=== PATIENT | male | born 1965 | race African-American/Black ===

== ENCOUNTER 2019-03-12 17:57 | Inpatient (IN) | payer OTHER ==
[2019-03-12] MEDS ORDERED: SODIUM CHLORIDE 2,654 ML IV ONE (19:51)
[2019-03-12] MEDS ORDERED: ACETAMINOPHEN 1000 MG/100 ML VIAL (NON FORMULARY) IVPB ONE (20:05)
[2019-03-12] MEDS ORDERED: KETOROLAC TROMETHAMINE 30 MG/1 ML VIAL IVPUSH ONE (20:05)
[2019-03-12] MEDS ORDERED: SODIUM CHLORIDE 0.9% 500 ML INFUS.BAG IV ONE (20:05)
[2019-03-12] MEDS ORDERED: KETOROLAC TROMETHAMINE 30 MG/1 ML VIAL ONE (20:16)
[2019-03-12] MEDS ORDERED: ACETAMINOPHEN INJECTION 100 ML IVPB ONE (20:16)
--- NOTE | 2019-03-12 20:33 | PDOC ---
History of Present Illness - General Chief Complaint: Wound Stated Complaint: FOOT ULCER Time Seen by Provider: 03/12/19 19:41 - History of Present Illness Initial Comments: Alan Londono is a 54yo man with a PMH of asthma, epilepsy, chronic LLE wound, polysubstance abuse(heroin, cocaine, alcohol) who presents from detox intake with a LLE foot wound. He states that he has had the wound for years, and he follows with wound care at [facility]. He has not seen his wound care doctor for several weeks, which was the last time the wound has been bandaged or addressed. He says that it always hurts, always smells bad, and always feels warm. He additionally reports that the foot is always very swollen. However, he says that the pain is much worse than normal; he generally is able to bear weight, and he has been unable to walk without significant pain for several days. Past History - Past Medical History Allergies/Adverse Reactions: Allergies Allergy/AdvReac Type Severity Reaction Status Date / Time No Known Allergies Allergy Verified 03/12/19 16:22 Home Medications: Ambulatory Orders Albuterol Sulfate 0.042% 1 inhaler PO Q4HWA PRN 03/12/19 Silver/Calcium Alginate [Algicell Ag 3/4"X12" Dressing] 1 patch 03/12/19 levETIRAcetam [Keppra -] 500 mg PO BID 03/12/19 COPD: No Diabetes: Yes Seizures: Yes Other medical history: substance abuse - Immunization History Immunization Up to Date: No - Psycho Social/Smoking Cessation Hx Smoking History: Current every day smoker Have you smoked in the past 12 months: Yes Number of Cigarettes Smoked Daily: 20 Information on smoking cessation initiated: No Hx Alcohol Use: No Drug/Substance Use Hx: No Review of Systems - Review of Systems Comments:: General: No fevers, no chills, no weight or appetite change, no malaise HEENT: No changes in vision, no changes in hearing, no congestion, no sore throat CV: No chest pain, no palpitations, no LE edema Pulm: No SOB, no cough, no wheezing GI: No nausea or vomiting, no change in bowel habits, no melena : No frequency, no urgency, no dysuria Musc: No back pain, no joint swelling, no recent injury. +chronic LLE wound Skin: See HPI Endo: No excessive thirst, no heat/cold intolerance Heme: No unusual bruising or bleeding, no swollen glands Neuro: No syncope, no numbness/tingling, no focal weakness Vasc: No claudication Psych: No recent change in mood, no SI or HI *Physical Exam - Vital Signs Last Vital Signs Temp Pulse Resp BP Pulse Ox 98.4 F 68 16 94/56 L 100 03/12/19 18:11 03/12/19 18:11 03/12/19 18:11 03/12/19 18:11 03/12/19 18:11 - Physical Exam General: Comfortable, no acute distress HEENT: PERRL, EOMI, MMM, voice normal Cards: RRR, no murmur appreciated Pulm: Comfortable on room air, clear to auscultation bilaterally Abd: Soft, nontender, nondistended Ext: Marked LLE edema with open ulcers on lateral ankle, approx 4cm, and proximal dorsal L foot. Wounds wet but not grossly purulent. Surrounding skin to distal foot warm and tender; no erythema visible secondary to baseline dark skin Skin: Wounds as above. Track parnell on BUE without any other areas of drainage, warmth, erythema Neuro: A&Ox3, CN grossly intact, normal speech, motor/sensory grossly intact and symmetric Psych: Mood appropriate to situation ED Treatment Course - LABORATORY CBC & Chemistry Diagram: 03/12/19 20:29 03/12/19 20:29 - RADIOLOGY Radiology Studies Ordered: Category Date Time Status CHEST PA & LAT [RAD] Stat Radiology 03/12/19 19:51 Ordered FOOT-LEFT [RAD] Stat Radiology 03/12/19 19:51 Ordered - Medications Given in the ED: ED Medications Discontinued Medications Generic Name Dose Route Start Last Admin Trade Name Freq PRN Reason Stop Dose Admin Acetaminophen 1,000 mg 03/12/19 20:05 03/12/19 20:27 Ofirmev Injection - IVPB 03/12/19 20:06 1,000 mg ONCE ONE Administration Ketorolac Tromethamine 30 mg 03/12/19 20:05 03/12/19 20:27 Toradol Injection - IVPUSH 03/12/19 20:06 30 mg ONCE ONE Administration Sodium Chloride 1,000 ml 03/12/19 20:05 03/12/19 20:27 Normal Saline - IV 03/12/19 20:06 1,000 ml ONCE ONE Administration Medical Decision Making - Medical Decision Making 03/12/19 20:33 Alan Londono is a 54yo man with a PMH of asthma, epilepsy, chronic LLE wound, polysubstance abuse(heroin, cocaine, alcohol) who presents from detox intake with a LLE foot wound, distal LLE swelling, warmth, and worsening pain. The wound has foul-smelling drainage. - Warm, swollen, tender surrounding wound with foul odor. Cellulitis v wound infection. Will eval for osteo, bacteremia. At high risk given IVDA - Sepsis workup - Foot xrays for evaluation - Acetaminopen toradol for pain. No opiates due to opiate abuse 03/12/19 22:05 - Labs reviewed, no concerning abnormalities. CRP slightly elevated at 1.7 - Xrays to be completed - Plan to admit for antibiotic treatment, podiatry/vascular workup 03/12/19 23:38 - Xrays without any obvious osteo - [employer] sent for admission - Discussed with Brock Correa Discussed with Dr Khris Boyer PGY2 Discharge - Discharge Information Problems reviewed: Yes Clinical Impression/Diagnosis: Ulcer, Heroin abuse, Cocaine abuse, Alcohol abuse, Polysubstance abuse Cellulitis Qualifiers: Site of cellulitis: extremity Site of cellulitis of extremity: lower extremity Laterality: left Qualified Code(s): L03.116 - Cellulitis of left lower limb Condition: Stable - Admission Yes - Follow up/Referral - Patient Discharge Instructions - Post Discharge Activity
[2019-03-12 20:51] LABS: BASO % 0.5 % (0-2.0); EOS % 3.9 % (0-4.5); HEMATOCRIT 36.4 % (35.4-49); LYMPH % 28.8 % (8-40); MCH 28.4 pg (25.7-33.7); MCHC 32.9 g/dl (32.0-35.9); MEAN CELL VOLUME 86.4 fl (80-96); NEUT % 54.8 % (42.8-82.8); PLATELET COUNT 174 K/MM3 (134-434); RBC 4.22 M/mm3 (4.00-5.60); WHITE BLOOD COUNT 3.7 K/mm3 (4.0-10.0)
[2019-03-12] MEDS ORDERED: VANCOMYCIN 1 GM in D5W (PRE-DOCKED) 1,000 MG/250 ML IVPB ONE (20:57)
[2019-03-12] MEDS ORDERED: PIPERACILLIN/TAZOB 4.5 GM 4.5 GM in DEXTROSE 5%-WATER 100 ML IVPB ONE (20:57)
[2019-03-12 21:11] LABS: INR 1.22 (0.83-1.09); PROTHROMBIN TIME (PATIENT) 14.4 SEC (9.7-13.0)
[2019-03-12 21:15] LABS: ALBUMIN 2.6 g/dl (3.4-5.0); BILIRUBIN,TOTAL 0.2 mg/dL (0.2-1); BLOOD UREA NITROGEN 9.6 mg/dL (7-18); CALCIUM 8.2 mg/dL (8.5-10.1); CREATININE 0.7 mg/dL (0.55-1.3); POTASSIUM 3.9 mmol/L (3.5-5.1); TOT PROT 6.8 g/dl (6.4-8.2)
--- NOTE | 2019-03-12 21:17 | PDOC ---
Attending Attestation - Resident Resident Name: RosalindTegan - ED Attending Attestation I have performed the following: I have examined & evaluated the patient, The case was reviewed & discussed with the resident, I agree w/resident's findings & plan, Exceptions are as noted - HPI HPI: 03/12/19 22:02 See resident HPI - Physicial Exam PE: 03/12/19 22:02 Agree with resident exam - Medical Decision Making 03/12/19 22:02 54M with malodorous chronic ulcer, acute changes include progressive pain and warmth to surrounding tissue Wound not clearly infected but likely with surrounding cellulitis f/u labs, cxr, RLE xr dispo per clinical course, likely admit
[2019-03-12] MEDS ORDERED: VANCOMYCIN 1 GRAM (PRE-DOCKED) 1,000 MG/250 ML BAG IVPB ONE (21:40)
[2019-03-12] MEDS ORDERED: PIPERACILLIN/TAZOB 4.5 GM 4.5 GM/100 ML BAG IVPB ONE (21:40)
[2019-03-12 21:57] LABS: URINE APPEARANCE CLEAR; URINE BILIRUBIN NEGATIVE (NEGATIVE); URINE COLOR YELLOW; URINE GLUCOSE (UA) NEGATIVE (NEGATIVE); URINE KETONE NEGATIVE (NEGATIVE); URINE LEUK ESTERASE NEGATIVE (NEGATIVE); URINE NITRITE NEGATIVE (NEGATIVE); URINE PROTEIN NEGATIVE (NEGATIVE)
--- NOTE | 2019-03-13 00:30 | PN ---
Teaching Attending Note Name of Resident: Darrel Sheriff ATTENDING PHYSICIAN STATEMENT I saw and evaluated the patient. I reviewed the resident's note and discussed the case with the resident. I agree with the resident's findings and plan as documented. SUBJECTIVE: Patient is a 54 year old man with a PMH of Asthma, Epilepsy, Tobacco use, Chronic LLE wound and Polysubstance abuse (heroin, cocaine, alcohol) who presents from [facility] detox intake with a LLE foot wound. He states that he has had the wound for years, and he follows with wound care at [facility]. He has not seen his wound care doctor for several weeks, which was the last time the wound has been bandaged or addressed. He says that it always hurts, always smells bad, and always feels warm. He additionally reports that the foot is always very swollen. However, he says that the pain is much worse than normal; he generally is able to bear weight, and he has been unable to walk without significant pain for several days. Denies fever, chills, headache, SOB, dizziness, palpitations, abdominal pain, dysuria, diarrhea, frequency or urgency. No recent travels or sick contacts. OBJECTIVE: Alert Vital Signs Period Temp Pulse Resp BP Sys/Fraga Pulse Ox Last 24 Hr 98.4 F 68 16 94/56 100 HEENT: No Jaundice, eye redness or discharge, PERRLA, EOMI. Normocephalic, atraumatic. External ears are normal and hearing is grossly intact. No nasal discharge. Neck: Supple, nontender. No palpable adenopathy or thyromegaly. No JVD Chest: Good effort. Clear to auscultation and percussion. Heart: Regular. No S3, rub or murmur Abdomen: Not distended, soft, nontender and no HSM. No rebound or guarding. Normal bowel sounds. Ext: Peripheral pulses intact. Marked LLE edema with open ulcers on lateral ankle, about 4 cm and proximal dorsal left foot. Wounds wet but not grossly purulent. Surrounding skin to distal foot warm and tender and no erythema. Skin: No petechiae, rash or ecchymosis. Sequelae of IVDU on BUE with no open wounds or erythema. Neuro: Alert. Oriented x3. CN 2-12 grossly intact. Sensation grossly intact in all four extremities and DTR are symmetric. Psych: Appropriate mood and affect. Good insight. Home Medications Medication Instructions Recorded Albuterol Sulfate 0.042% 1 inhaler PO Q4HWA PRN 03/12/19 Silver/Calcium Alginate [Algicell 1 patch 03/12/19 Ag 3/4"X12" Dressing] levETIRAcetam [Keppra -] 500 mg PO BID 03/12/19 Abnormal Lab Results 03/12/19 03/12/19 03/12/19 20:29 20:29 20:29 WBC Monocytes % ESR 37 H PT with INR 14.40 H INR 1.22 H Chloride 108 H Anion Gap 2 L Calcium 8.2 L C-Reactive Protein 1.7 H Albumin 2.6 L 03/12/19 20:29 WBC 3.7 L Monocytes % 12.0 H ESR PT with INR INR Chloride Anion Gap Calcium C-Reactive Protein Albumin ASSESSMENT AND PLAN: 1. LLE infected wound and cellulitis - Left leg/foot xray shows soft tissue swelling and no fracture or gas collection. No acute abnormality on CXR. Wound culture being sent and will get MRI of LLE to rule out osteomyelitis. Being treated with IV Vancomycin and Zosyn. Will provide daily wound care, elevate the LLE when supine, consult Wound care and ID. Continue IV NS for low BP - though hypotension may be due to amyloidosis. Get ECHO. Will continue comprehensive care for all of patients comorbid conditions. 2. Hypoalbuminemia - Possibly due to combined effects of malnutrition and inflammation associated with comorbid chronic conditions. Will ensure adequate dietary protein intake and also consult plastics and composites inspector. 3. Tobacco Use Counseled on risks associated with tobacco use. We will provide patient all the necessary assistance to facilitate smoking cessation and prescribe Nicotine patch. 4. Polysubstance/Alcohol abuse - Monitor closely for drug withdrawal. Implement [facility] librium alcohol withdrawal protocol and do neurochecks. Implement seizure, fall and aspiration precautions. Treat with thiamine and folic acid and monitor electrolytes (Ca,Mg,K,P). Counseled patient about abstaining from illicit drugs/ alcohol. Will consult web design specialist and refer to drug/alcohol detox upon discharge. 5. DVT prophylaxis - Lovenox 40 mg SQ q 24 hours. 6. Advance directives - Full code
[2019-03-13 02:37] LABS: VENOUS PC02 41.8 mmHg (38-52); VENOUS PH 7.4 (7.31-7.41); VENOUS PO2 57.4 mmHg (28-48)
[2019-03-13 03:56] VITALS: BMI 23.4
[2019-03-13] MEDS ORDERED: SODIUM CHLORIDE 1,000 ML IV SCH (04:00)
[2019-03-13] MEDS ORDERED: ACETAMINOPHEN 1000 MG/100 ML VIAL (NON FORMULARY) IVPB PRN (04:47)
[2019-03-13] MEDS ORDERED: METHADONE HCL 10 MG TABLET PO ONE (04:58)
[2019-03-13] MEDS ORDERED: FOLIC ACID INJECTION - 1 MG, THIAMINE HCL 100 MG, MULTIVIT INJECTION ADULT 10 ML in SOD... IVPB ONE (05:00)
--- NOTE | 2019-03-13 06:34 | HP ---
CHIEF COMPLAINT: Pain in LLE since 1 day PCP: None HISTORY OF PRESENT ILLNESS: 54 year old male with PMH of asthma, epilepsy, LLE wound, and polysubstance abuse. He presnted to the ER with complaints of pain in his LLE. He sustained a wound in his LLE approximately 1.5 years ago when he hit his foot on the radiator. He did not seek help, and soon afterwards the foot got infected. He receives wound care at [facility] every 3-4 weeks, his last visit was a few weeks ago. He states that the wound has remained the same over the past several months. He states that his foot began to hurt yesterday, with no identifiable inciting events. There has been no discharge, bleeding, or numbness. He presented to [facility] today for heroin detox, and was sent to the ER for management of his foot wound. He last used heroin yesterday, and consumes 4-5 bags per day. He also smokes 1/2 ppd, and uses $60 of cocaine per day, along with 2-6 beers per day. COWS score was 2 on admission but found to be 10 at around 4AM. ER course was notable for: (1) BP 90s/60s (2) Xray leg no evidence of osteo Recent Travel: denies PAST MEDICAL HISTORY: See HPI PAST SURGICAL HISTORY: denies Social History: See HPI Allergies No Known Allergies Allergy (Verified 03/12/19 16:22) HOME MEDICATIONS: Home Medications Medication Instructions Recorded Albuterol Sulfate 0.042% 1 inhaler PO Q4HWA PRN 03/12/19 Silver/Calcium Alginate [Algicell 1 patch 03/12/19 Ag 3/4"X12" Dressing] levETIRAcetam [Keppra -] 500 mg PO BID 03/12/19 REVIEW OF SYSTEMS CONSTITUTIONAL: Absent: fever, chills, diaphoresis, generalized weakness, malaise, loss of appetite, weight change HEENT: Absent: rhinorrhea, nasal congestion, throat pain, throat swelling, difficulty swallowing, mouth swelling, ear pain, eye pain, visual changes CARDIOVASCULAR: Absent: chest pain, syncope, palpitations, irregular heart rate, lightheadedness , peripheral edema RESPIRATORY: Absent: cough, shortness of breath, dyspnea with exertion, orthopnea, wheezing, stridor, hemoptysis GASTROINTESTINAL: Absent: abdominal pain, abdominal distension, nausea, vomiting, diarrhea, constipation, melena, hematochezia GENITOURINARY: Absent: dysuria, frequency, urgency, hesitancy, hematuria, flank pain, genital pain MUSCULOSKELETAL: pain in left leg Absent: myalgia, arthralgia, joint swelling, back pain, neck pain SKIN: Absent: rash, itching, pallor HEMATOLOGIC/IMMUNOLOGIC: Absent: easy bleeding, easy bruising, lymphadenopathy, frequent infections ENDOCRINE: Absent: unexplained weight gain, unexplained weight loss, heat intolerance, cold intolerance NEUROLOGIC: Absent: headache, focal weakness or paresthesias, dizziness, unsteady gait, seizure, mental status changes, bladder or bowel incontinence PSYCHIATRIC: Absent: anxiety, depression, suicidal or homicidal ideation, hallucinations. PHYSICAL EXAMINATION Vital Signs - 24 hr 03/12/19 03/13/19 03/13/19 18:11 02:21 03:50 Temperature 98.4 F 97.9 F 98.0 F Pulse Rate 68 57 L Pulse Rate [ 58 L Apical] Respiratory 16 18 18 Rate Blood Pressure 94/56 L 117/73 Blood Pressure 101/61 [Left Arm] O2 Sat by Pulse 100 100 Oximetry (%) 03/13/19 03:57 Temperature Pulse Rate Pulse Rate [ Apical] Respiratory Rate Blood Pressure Blood Pressure [Left Arm] O2 Sat by Pulse 100 Oximetry (%) GENERAL: Lying in bed, somnolent but responsive HEAD: Normal with no signs of trauma. EYES: Pupils equal, round and reactive to light, extraocular movements intact, sclera anicteric, conjunctiva clear. No lid lag. EARS, NOSE, THROAT: Ears normal, nares patent, oropharynx clear without exudates. Moist mucous membranes. NECK: Normal range of motion, supple without lymphadenopathy, JVD, or masses. LUNGS: Breath sounds equal, clear to auscultation bilaterally. No wheezes, and no crackles. No accessory muscle use. HEART: Regular rate and rhythm, normal S1 and S2 without murmur, rub or gallop. ABDOMEN: Soft, nontender, not distended, normoactive bowel sounds, no guarding, no rebound, no masses. No hepatomegaly or splenomegaly. LOWER EXTREMITIES: LLE grossly edematous, 6x4 inch grade 2 ulcer on left lateral malleolus NEUROLOGICAL: Motor 5/5, sensations intact PSYCHIATRIC: Cooperative. Good eye contact. Appropriate mood and affect. SKIN: Warm, dry, normal turgor, no rashes or lesions noted, normal capillary refill. Laboratory Results - last 24 hr 03/12/19 03/12/19 03/12/19 20:28 20:29 20:29 WBC RBC Hgb Hct MCV MCH MCHC RDW Plt Count MPV Absolute Neuts (auto) Neutrophils % Lymphocytes % Monocytes % Eosinophils % Basophils % Nucleated RBC % ESR PT with INR 14.40 H INR 1.22 H PTT (Actin FS) 34.0 VBG pH POC VBG pCO2 POC VBG pO2 VBG HCO3 VBG O2 Sat (Eddie) VBG Base Excess Sodium Potassium Chloride Carbon Dioxide Anion Gap BUN Creatinine Est GFR (CKD-EPI)AfAm Est GFR (CKD-EPI)NonAf Random Glucose Lactic Acid 1.1 Calcium Total Bilirubin AST ALT Alkaline Phosphatase Troponin I < 0.02 C-Reactive Protein Total Protein Albumin Urine Color Urine Appearance Urine pH Ur Specific [place] Urine Protein Urine Glucose (UA) Urine Ketones Urine Blood Urine Nitrite Urine Bilirubin Urine Urobilinogen Ur Leukocyte Esterase 03/12/19 03/12/19 03/12/19 20:29 20:29 20:29 WBC 3.7 L RBC 4.22 Hgb 12.0 Hct 36.4 MCV 86.4 MCH 28.4 MCHC 32.9 RDW 14.0 Plt Count 174 MPV 8.0 Absolute Neuts (auto) 2.0 Neutrophils % 54.8 Lymphocytes % 28.8 Monocytes % 12.0 H Eosinophils % 3.9 Basophils % 0.5 Nucleated RBC % 0 ESR 37 H PT with INR INR PTT (Actin FS) VBG pH POC VBG pCO2 POC VBG pO2 VBG HCO3 VBG O2 Sat (Eddie) VBG Base Excess Sodium 137 Potassium 3.9 Chloride 108 H Carbon Dioxide 27 Anion Gap 2 L BUN 9.6 Creatinine 0.7 Est GFR (CKD-EPI)AfAm 124.87 Est GFR (CKD-EPI)NonAf 107.74 Random Glucose 99 Lactic Acid Calcium 8.2 L Total Bilirubin 0.2 AST 17 ALT 17 Alkaline Phosphatase 115 Troponin I C-Reactive Protein 1.7 H Total Protein 6.8 Albumin 2.6 L Urine Color Urine Appearance Urine pH Ur Specific [place] Urine Protein Urine Glucose (UA) Urine Ketones Urine Blood Urine Nitrite Urine Bilirubin Urine Urobilinogen Ur Leukocyte Esterase 03/12/19 03/13/19 21:37 02:18 WBC RBC Hgb Hct MCV MCH MCHC RDW Plt Count MPV Absolute Neuts (auto) Neutrophils % Lymphocytes % Monocytes % Eosinophils % Basophils % Nucleated RBC % ESR PT with INR INR PTT (Actin FS) VBG pH 7.40 POC VBG pCO2 41.8 POC VBG pO2 57.4 H VBG HCO3 25.1 VBG O2 Sat (Eddie) 88.0 H VBG Base Excess 0.6 Sodium Potassium Chloride Carbon Dioxide Anion Gap BUN Creatinine Est GFR (CKD-EPI)AfAm Est GFR (CKD-EPI)NonAf Random Glucose Lactic Acid Calcium Total Bilirubin AST ALT Alkaline Phosphatase Troponin I C-Reactive Protein Total Protein Albumin Urine Color Yellow Urine Appearance Clear Urine pH 6.0 Ur Specific [place] 1.016 Urine Protein Negative Urine Glucose (UA) Negative Urine Ketones Negative Urine Blood Negative Urine Nitrite Negative Urine Bilirubin Negative Urine Urobilinogen 1.0 Ur Leukocyte Esterase Negative ASSESSMENT/PLAN: 54 year old male with PMH of asthma, epilepsy, LLE wound, and polysubstance abuse. He presnted to the ER with complaints of pain in his LLE, admitted for suspected cellulitis. #Cellulitis - Zosyn, Vanco started - X ray showed no evidence of osteo, MRI ordered to confirm - ID consult placed - Podiatry consult placed - Woud care consult placed #Substance abuse - Methadone 20mg given when he was found to have COWS 10 - Librium protocol started - Banana bag ordered - Seizure precautions #Hypotension - N/S @ 100 - May be due to amyloidosis, hx of IV drug use. - Echo ordered #FEN - N/S @ 100 #DVT - Lovenox 40mg Visit type - Emergency Visit Emergency Visit: Yes ED Registration Date: 03/12/19 Care time: The patient presented to the Emergency Department on the above date and was hospitalized for further evaluation of their emergent condition. - New Patient This patient is new to me today: Yes Date on this admission: 03/13/19 - Critical Care Critical Care patient: No ATTENDING PHYSICIAN STATEMENT I saw and evaluated the patient. I reviewed the resident's note and discussed the case with the resident. I agree with the resident's findings and plan as documented. SUBJECTIVE: OBJECTIVE: ASSESSMENT AND PLAN:
[2019-03-13] MEDS ORDERED: chlordiazePOXIDE HCL 25 MG CAPSULE PO ONE (06:44)
[2019-03-13] MEDS ORDERED: chlordiazePOXIDE HCL 10 MG CAPSULE PO PRN (06:44)
[2019-03-13 08:16] LABS: BASO % 0.5 % (0-2.0); EOS % 3.4 % (0-4.5); HEMATOCRIT 34.2 % (35.4-49); HEMOGLOBIN 11.4 GM/dL (11.7-16.9); LYMPH % 28.2 % (8-40); MCH 28.5 pg (25.7-33.7); MCHC 33.4 g/dl (32.0-35.9); MEAN CELL VOLUME 85.5 fl (80-96); MEAN PLT VOLUME 7.8 fl (7.5-11.1); MONO % 12.6 % (3.8-10.2); NEUT % 55.3 % (42.8-82.8); PLATELET COUNT 146 K/MM3 (134-434); RDW 14.2 % (11.9-15.9); WHITE BLOOD COUNT 2.7 K/mm3 (4.0-10.0)
[2019-03-13 08:37] LABS: ALBUMIN 2.3 g/dl (3.4-5.0); BILIRUBIN,TOTAL 0.3 mg/dL (0.2-1); CALCIUM 7.6 mg/dL (8.5-10.1); CREATININE 0.6 mg/dL (0.55-1.3); POTASSIUM 4.2 mmol/L (3.5-5.1)
[2019-03-13] MEDS ORDERED: DEXTROSE 5%-WATER - 50 ML IVPB ONE ×2 (09:54→17:21)
[2019-03-13] MEDS ORDERED: PIPERACILLIN/TAZOBACTAM 3.375 GM VIAL IVPB ONE ×2 (09:54→17:21)
[2019-03-13] MEDS: ENOXAPARIN NA (PORCINE) 40 MG/0.4 ML DISP.SYRIN SQ SCH (09:58)
[2019-03-13] MEDS: levETIRAcetam 500 MG TABLET (FP) PO SCH ×2 (09:58→20:59)
[2019-03-13] MEDS ORDERED: PIPERACILLIN/TAZOB 3.375 GM 3.375 GM in DEXTROSE 5%-WATER - 50 ML IVPB SCH (10:00)
--- NOTE | 2019-03-13 12:29 | ECHO ---
Name: MARIXA BATES Exam:Adult Echocardiogram Study Date: 03/13/2019 11:15 AM Age: 54 yrs Height: 73 in Weight: 177 lb BSA: 2.0 m2 Left Ventricle Left ventricular systolic function is normal. Ejection Fraction = 55-60%. The transmitral spectral Do ppler flow pattern is normal for age. Right Ventricle The right ventricle is normal in size and function. Atria Normal left and right atrial size and function. Mitral Valve The mitral valve is normal in structure and function. There is no mitral valve stenosis. There is mil d mitral regurgitation. Tricuspid Valve The tricuspid valve is normal in structure and function. There is mild tricuspid regurgitation. Right ventricular systolic pressure is normal. Aortic Valve The aortic valve opens well. Pulmonic Valve The pulmonic valve is not well seen, but is grossly normal. There is no pulmonic valvular stenosis. T race to mild pulmonic valvular regurgitation. Great Vessels Mild aortic root dilatation. Mildly dilated inferior vena cava. Pericardium/Pleura There is no pericardial effusion. Interpretation Summary Left ventricular systolic function is normal. Ejection Fraction = 55-60%. The right ventricle is normal in size and function. There is mild mitral regurgitation. There is mild tricuspid regurgitation. Right ventricular systolic pressure is normal. Mild aortic root dilatation. There is no pericardial effusion. Mildly dilated inferior vena cava MD Pantoja *Deloris 03/13/2019 12:29 PM
--- NOTE | 2019-03-13 13:25 | EKG ---
Test Reason : Blood Pressure : / mmHG Vent. Rate : 076 BPM Atrial Rate : 076 BPM P-R Int : 156 ms QRS Dur : 096 ms QT Int : 430 ms P-R-T Axes : 077 075 050 degrees QTc Int : 483 ms NORMAL SINUS RHYTHM MINIMAL VOLTAGE CRITERIA FOR LVH, MAY BE NORMAL VARIANT PROLONGED QT ABNORMAL ECG NO PREVIOUS ECGS AVAILABLE Confirmed by MYA GORDON MD ([id number]) on 03/13/2019 1:24:40 PM Referred By: Confirmed By:MYA GORDON MD
--- NOTE | 2019-03-13 13:38 | CON.ID ---
Consult Consult Specialty:: infectious diseases Referred by:: hospitalist Reason for Consultation:: left leg wound - History of Present Illness Chief Complaint: left leg wound History of Present Illness: 54 year old male with PMH of asthma, epilepsy, LLE wound, and polysubstance abuse coming to the hospital because of left lower ext non healing wound which he sustained approximately 1.5 years ago when he hit his foot on the radiator. He did not seek help, and soon afterwards the foot got infected. He receives wound care at [place] every 3-4 weeks, his last visit was a few weeks ago. He states that the wound has remained the same over the past several months. He states that his foot began to hurt yesterday, with no identifiable inciting events. There has been no discharge, bleeding, or numbness. He presented to [facility] today for heroin detox, and was sent to the ER for management of his foot wound. He last used heroin yesterday, and consumes 4-5 bags per day. He also smokes 1/2 ppd, currently feels better - History Source History Provided By: Patient, Medical Record Limitations to Obtaining History: No Limitations - Past Medical History MA[employer] OUT SPECIALIST: Yes: Seizure Pulmonary: Yes: Asthma Dermatology: Yes: Other (ulceration of LLE) - Alcohol/Substance Use Hx Alcohol Use: No Number of Drinks Daily: 12 (cans beer ) History of Substance Use: reports: Cocaine, Heroin Date of Last Use: 03/11/19 - Smoking History Smoking history: Current every day smoker Have you smoked in the past 12 months: Yes Aproximately how many cigarettes per day: 20 Home Medications - Allergies Allergies/Adverse Reactions: Allergies Allergy/AdvReac Type Severity Reaction Status Date / Time No Known Allergies Allergy Verified 03/12/19 16:22 - Home Medications Home Medications: Ambulatory Orders Albuterol Sulfate 0.042% 1 inhaler PO Q4HWA PRN 03/12/19 Silver/Calcium Alginate [Algicell Ag 3/4"X12" Dressing] 1 patch DAILY 03/12/19 levETIRAcetam [Keppra -] 500 mg PO BID 03/12/19 Review of Systems - Review of Systems Constitutional: reports: No Symptoms Eyes: reports: No Symptoms HENT: reports: No Symptoms Neck: reports: No Symptoms Cardiovascular: reports: No Symptoms Respiratory: reports: No Symptoms Gastrointestinal: reports: No Symptoms Genitourinary: reports: No Symptoms Musculoskeletal: reports: Other Integumentary: reports: Erythema, Wound Neurological: reports: No Symptoms Endocrine: reports: No Symptoms Hematology/Lymphatic: reports: No Symptoms Psychiatric: reports: No Symptoms Physical Exam Vital Signs: Vital Signs Temperature 98.8 F 03/13/19 09:00 Pulse Rate 54 L 03/13/19 09:00 Respiratory Rate 18 03/13/19 09:00 Blood Pressure 100/50 L 03/13/19 09:00 O2 Sat by Pulse Oximetry (%) 100 03/13/19 03:57 Constitutional: Yes: No Distress, Calm Cardiovascular: Yes: Regular Rate and Rhythm Respiratory: Yes: Regular, CTA Bilaterally Gastrointestinal: Yes: Normal Bowel Sounds, Soft Musculoskeletal: Yes: WNL Extremities: Yes: Erythema, Other Wound/Incision: Yes: Dressing Dry and Intact Neurological: Yes: Alert, Oriented Psychiatric: Yes: Alert, Oriented Labs: CBC, BMP 03/13/19 07:43 03/13/19 07:43 Assessment/Plan 54 year old male with PMH of asthma, epilepsy, LLE wound, and polysubstance abuse. He presnted to the ER with complaints of pain in his LLE, admitted cellulitis. cellulitis substance abuse plan i am going to continue zosyn await for cx reports rest as per the team consider wound care consult wound care rest as per the team
[2019-03-13] MEDS: chlordiazePOXIDE HCL 25 MG CAPSULE PO SCH ×2 (14:22→20:59)
[2019-03-13] MEDS ORDERED: ACETAMINOPHEN 325 MG TABLET (FP) PO PRN (15:09)
--- NOTE | 2019-03-13 15:27 | CONSULT ---
- Consultation REQUESTING PROVIDER: CONSULT REQUEST: We have been asked to surgically evaluate this patient for LLE wounds PCP:Wallace Buck MD HISTORY OF PRESENT ILLNESS: 54yo M h/o LLE wound x 2 years getting treated at a wound care center in [place]. Pt came in because of increased pain and swelling in his LLE. Pt last saw his wound care center a couple weeks ago. Pt has history of polysubstance abuse. Denies h/o vascular disease. Currently smokes 1/2-1ppd. Home Medications Medication Instructions Recorded Albuterol Sulfate 0.042% 1 inhaler PO Q4HWA PRN 03/12/19 Silver/Calcium Alginate [Algicell 1 patch DAILY 03/12/19 Ag 3/4"X12" Dressing] levETIRAcetam [Keppra -] 500 mg PO BID 03/12/19 Allergies Allergy/AdvReac Type Severity Reaction Status Date / Time No Known Allergies Allergy Verified 03/12/19 16:22 PHYSICAL EXAM: GENERAL: Awake, alert, and fully oriented, in no acute distress. HEAD: Normal with no signs of trauma. EYES: PERRL, sclera anicteric, conjunctiva clear. NECK: Normal ROM, supple without lymphadenopathy, JVD, or masses. LUNGS: breathing comfortably LOWER EXTREMITIES: dopplarable pulses, warm, well-perfused. LLE shows 6cm x 2 cm ulcer anterior sams and 15cm x 10 cm ulcer lateral maleolus. +2 edema, + erythema and tenderness. NEUROLOGICAL: Normal speech, gait not observed. PSYCH: Cooperative. Good eye contact. Appropriate mood and affect. SKIN: Warm, dry, normal turgor, no rashes or lesions noted. Vital Signs Temperature 98.8 F 03/13/19 09:00 Pulse Rate 54 L 03/13/19 09:00 Respiratory Rate 18 03/13/19 09:00 Blood Pressure 100/50 L 03/13/19 09:00 O2 Sat by Pulse Oximetry (%) 100 03/13/19 03:57 Lab Results WBC 2.7 K/mm3 (4.0-10.0) L 03/13/19 07:43 RBC 4.00 M/mm3 (4.00-5.60) 03/13/19 07:43 Hgb 11.4 GM/dL (11.7-16.9) L 03/13/19 07:43 Hct 34.2 % (35.4-49) L 03/13/19 07:43 MCV 85.5 fl (80-96) 03/13/19 07:43 MCHC 33.4 g/dl (32.0-35.9) 03/13/19 07:43 RDW 14.2 % (11.9-15.9) 03/13/19 07:43 Plt Count 146 K/MM3 (134-434) 03/13/19 07:43 Sodium 140 mmol/L (136-145) 03/13/19 07:43 Potassium 4.2 mmol/L (3.5-5.1) 03/13/19 07:43 Chloride 113 mmol/L (98-107) H 03/13/19 07:43 Carbon Dioxide 24 mmol/L (21-32) 03/13/19 07:43 Anion Gap 3 MMOL/L (8-16) L 03/13/19 07:43 BUN 8.0 mg/dL (7-18) 03/13/19 07:43 Creatinine 0.6 mg/dL (0.55-1.3) 03/13/19 07:43 Random Glucose 98 mg/dL (74-106) 03/13/19 07:43 Calcium 7.6 mg/dL (8.5-10.1) L 03/13/19 07:43 INR 1.22 (0.83-1.09) H 03/12/19 20:29 Problem List - Problems (1) Cellulitis Assessment/Plan: PLAN - recommend clean dressing with calcium aginate and gauze, will need compression dressing once cellulitis resolves., -pt states that he lives in [place] so would like to continue to going to wound care center there, offered pt to come to W[facility] care center at [facility] if desired. -no acute surgical intervention at this time. Pt discussed with Dr. Diaz who agrees with plan Code(s): L03.90 - CELLULITIS, UNSPECIFIED Qualifiers: Site of cellulitis: extremity Site of cellulitis of extremity: lower extremity Laterality: left Qualified Code(s): L03.116 - Cellulitis of left lower limb
--- NOTE | 2019-03-13 16:01 | PN ---
Teaching Attending Note Name of Resident: Tito Correa ATTENDING PHYSICIAN STATEMENT I saw and evaluated the patient. I reviewed the resident's note and discussed the case with the resident. I agree with the resident's findings and plan as documented. SUBJECTIVE: complains of pain/tenderness LLE - starting in foot and ascending to ankle region. No fever/chills. OBJECTIVE: Afebrile, borderline BP Last Vital Signs Temp Pulse Resp BP Pulse Ox 98.8 F 54 L 18 100/50 L 100 03/13/19 09:00 03/13/19 09:00 03/13/19 09:00 03/13/19 09:00 03/13/19 03:57 HEENT - Atraumatic, Normocephalic. Heart - S1, S2, RRR Lungs - clear to auscultation Abdomen - Soft, non-tender. Bowel Sounds normal. Extremities - L foot edema, erythema, tenderness. Large ulcer L Lateral malleolus. Laboratory Results - last 24 hr 03/12/19 03/12/19 03/12/19 20:28 20:29 20:29 WBC RBC Hgb Hct MCV MCH MCHC RDW Plt Count MPV Absolute Neuts (auto) Neutrophils % Lymphocytes % Monocytes % Eosinophils % Basophils % Nucleated RBC % ESR PT with INR 14.40 H INR 1.22 H PTT (Actin FS) 34.0 VBG pH POC VBG pCO2 POC VBG pO2 VBG HCO3 VBG O2 Sat (Eddie) VBG Base Excess Sodium Potassium Chloride Carbon Dioxide Anion Gap BUN Creatinine Est GFR (CKD-EPI)AfAm Est GFR (CKD-EPI)NonAf Random Glucose Lactic Acid 1.1 Calcium Total Bilirubin AST ALT Alkaline Phosphatase Troponin I < 0.02 C-Reactive Protein Total Protein Albumin Urine Color Urine Appearance Urine pH Ur Specific [place] Urine Protein Urine Glucose (UA) Urine Ketones Urine Blood Urine Nitrite Urine Bilirubin Urine Urobilinogen Ur Leukocyte Esterase 03/12/19 03/12/19 03/12/19 20:29 20:29 20:29 WBC 3.7 L RBC 4.22 Hgb 12.0 Hct 36.4 MCV 86.4 MCH 28.4 MCHC 32.9 RDW 14.0 Plt Count 174 MPV 8.0 Absolute Neuts (auto) 2.0 Neutrophils % 54.8 Lymphocytes % 28.8 Monocytes % 12.0 H Eosinophils % 3.9 Basophils % 0.5 Nucleated RBC % 0 ESR 37 H PT with INR INR PTT (Actin FS) VBG pH POC VBG pCO2 POC VBG pO2 VBG HCO3 VBG O2 Sat (Eddie) VBG Base Excess Sodium 137 Potassium 3.9 Chloride 108 H Carbon Dioxide 27 Anion Gap 2 L BUN 9.6 Creatinine 0.7 Est GFR (CKD-EPI)AfAm 124.87 Est GFR (CKD-EPI)NonAf 107.74 Random Glucose 99 Lactic Acid Calcium 8.2 L Total Bilirubin 0.2 AST 17 ALT 17 Alkaline Phosphatase 115 Troponin I C-Reactive Protein 1.7 H Total Protein 6.8 Albumin 2.6 L Urine Color Urine Appearance Urine pH Ur Specific [place] Urine Protein Urine Glucose (UA) Urine Ketones Urine Blood Urine Nitrite Urine Bilirubin Urine Urobilinogen Ur Leukocyte Esterase 03/12/19 03/13/19 03/13/19 21:37 02:18 07:43 WBC 2.7 L RBC 4.00 Hgb 11.4 L Hct 34.2 L MCV 85.5 MCH 28.5 MCHC 33.4 RDW 14.2 Plt Count 146 MPV 7.8 Absolute Neuts (auto) 1.5 Neutrophils % 55.3 Lymphocytes % 28.2 Monocytes % 12.6 H Eosinophils % 3.4 Basophils % 0.5 Nucleated RBC % 0 ESR PT with INR INR PTT (Actin FS) VBG pH 7.40 POC VBG pCO2 41.8 POC VBG pO2 57.4 H VBG HCO3 25.1 VBG O2 Sat (Eddie) 88.0 H VBG Base Excess 0.6 Sodium Potassium Chloride Carbon Dioxide Anion Gap BUN Creatinine Est GFR (CKD-EPI)AfAm Est GFR (CKD-EPI)NonAf Random Glucose Lactic Acid Calcium Total Bilirubin AST ALT Alkaline Phosphatase Troponin I C-Reactive Protein Total Protein Albumin Urine Color Yellow Urine Appearance Clear Urine pH 6.0 Ur Specific [place] 1.016 Urine Protein Negative Urine Glucose (UA) Negative Urine Ketones Negative Urine Blood Negative Urine Nitrite Negative Urine Bilirubin Negative Urine Urobilinogen 1.0 Ur Leukocyte Esterase Negative 03/13/19 07:43 WBC RBC Hgb Hct MCV MCH MCHC RDW Plt Count MPV Absolute Neuts (auto) Neutrophils % Lymphocytes % Monocytes % Eosinophils % Basophils % Nucleated RBC % ESR PT with INR INR PTT (Actin FS) VBG pH POC VBG pCO2 POC VBG pO2 VBG HCO3 VBG O2 Sat (Eddie) VBG Base Excess Sodium 140 Potassium 4.2 Chloride 113 H Carbon Dioxide 24 Anion Gap 3 L BUN 8.0 Creatinine 0.6 Est GFR (CKD-EPI)AfAm 133.04 Est GFR (CKD-EPI)NonAf 114.79 Random Glucose 98 Lactic Acid Calcium 7.6 L Total Bilirubin 0.3 AST 15 ALT 15 Alkaline Phosphatase 96 Troponin I C-Reactive Protein Total Protein 6.0 L Albumin 2.3 L Urine Color Urine Appearance Urine pH Ur Specific [place] Urine Protein Urine Glucose (UA) Urine Ketones Urine Blood Urine Nitrite Urine Bilirubin Urine Urobilinogen Ur Leukocyte Esterase Current Medications Generic Name Dose Route Start Last Admin Trade Name Freq PRN Reason Stop Dose Admin Acetaminophen 650 mg 03/13/19 15:09 Tylenol - PO Q6H PRN PAIN LEVEL 6-10 Chlordiazepoxide HCl 10 mg 03/16/19 00:00 Librium - PO 03/16/19 23:59 Q12H PRN Signs/symptoms of Withdrawal Chlordiazepoxide HCl 10 mg 03/13/19 06:44 Librium - PO 03/15/19 23:59 Q8H PRN Signs/symptoms of Withdrawal Chlordiazepoxide HCl 25 mg 03/13/19 13:00 03/13/19 14:22 Librium - PO 03/14/19 21:01 25 mg Q8H KANDI Administration Chlordiazepoxide HCl 15 mg 03/15/19 05:00 Librium - PO 03/15/19 21:01 Q8H KANDI Chlordiazepoxide HCl 10 mg 03/16/19 05:00 Librium - PO 03/16/19 21:01 Q8H KANDI Chlordiazepoxide HCl 10 mg 03/17/19 05:00 Librium - PO 03/17/19 05:01 ONCE ONE Enoxaparin Sodium 40 mg 03/13/19 10:00 03/13/19 09:58 Lovenox - SQ 40 mg DAILY KANDI Administration Folic Acid 1 mg 03/14/19 10:00 Folic Acid - PO DAILY [facility] Sodium Chloride 1,000 mls @ 100 mls/hr 03/13/19 04:00 03/13/19 05:28 Normal Saline - IV Not Given ASDIR KANDI Piperacillin Sod/Tazobactam 50 mls @ 100 mls/hr 03/13/19 18:00 Sod 3.375 gm/ Dextrose IVPB Q8H-IV KANDI Protocol Levetiracetam 500 mg 03/13/19 10:00 03/13/19 09:58 Keppra - PO 500 mg BID [facility] Administration Multivitamins/Minerals/Vitamin C 1 tab 03/14/19 10:00 Tab-A-Vit - PO DAILY [facility] Thiamine HCl 100 mg 03/14/19 10:00 Vitamin B1 - PO DAILY [facility] Home Medications Medication Instructions Recorded Albuterol Sulfate 0.042% 1 inhaler PO Q4HWA PRN 03/12/19 Silver/Calcium Alginate [Algicell 1 patch DAILY 03/12/19 Ag 3/4"X12" Dressing] levETIRAcetam [Keppra -] 500 mg PO BID 03/12/19 ASSESSMENT AND PLAN: 54 year old male with history of Asthma, Epilepsy, Chronic LLE wound (follows with wound care in [place]), and polysubstance abuse (Heroin, Alcohol, cocaine , tobacco), sent from with worsening pain/erythema/tenderness. 1. Infected LLE Ulcer with cellulitis Blood Cx pending. MRI LLE to exclude OM Afebrile Hemodynamically Stable. Continue Zosyn as per ID. Wound Care and Podiatry consulted. 2. Polysbstance Abuse (Heroin, Alcohol, cocaine, tobacco) On Methadone Librium protocol for possible alcohol withdrawal. Addiction Medicine to evaluate. Thiamine, MVI, Folate. 3. Seizure Disorder Continue Keppra. DVT - Lovenox SQ
--- NOTE | 2019-03-13 17:22 | PN ---
Physical Exam: SUBJECTIVE: Patient seen and examined OBJECTIVE: Vital Signs Period Temp Pulse Resp BP Sys/Fraga Pulse Ox Last 24 Hr 97.9 F-98.8 F 54-68 16-18 94-117/50-73 98-100 GENERAL: The patient is awake, alert, and fully oriented, in no acute distress. HEAD: Normal with no signs of trauma. EYES: PERRL, extraocular movements intact, sclera anicteric, conjunctiva clear. No ptosis. ENT: Ears normal, nares patent, oropharynx clear without exudates, moist mucous membranes. NECK: Trachea midline, full range of motion, supple. LUNGS: Breath sounds equal, clear to auscultation bilaterally, no wheezes, no crackles, no accessory muscle use. HEART: Regular rate and rhythm, S1, S2 without murmur, rub or gallop. ABDOMEN: Soft, nontender, nondistended, normoactive bowel sounds, no guarding, no rebound, no hepatosplenomegaly, no masses. EXTREMITIES: 2+ pulses, warm, well-perfused, no edema. NEUROLOGICAL: Cranial nerves II through XII grossly intact. Normal speech, gait not observed. PSYCH: Normal mood, normal affect. SKIN: Warm, dry, normal turgor, no rashes or lesions noted Laboratory Results - last 24 hr 03/12/19 03/12/19 03/12/19 20:28 20:29 20:29 WBC RBC Hgb Hct MCV MCH MCHC RDW Plt Count MPV Absolute Neuts (auto) Neutrophils % Lymphocytes % Monocytes % Eosinophils % Basophils % Nucleated RBC % ESR PT with INR 14.40 H INR 1.22 H PTT (Actin FS) 34.0 VBG pH POC VBG pCO2 POC VBG pO2 VBG HCO3 VBG O2 Sat (Eddie) VBG Base Excess Sodium Potassium Chloride Carbon Dioxide Anion Gap BUN Creatinine Est GFR (CKD-EPI)AfAm Est GFR (CKD-EPI)NonAf Random Glucose Lactic Acid 1.1 Calcium Total Bilirubin AST ALT Alkaline Phosphatase Troponin I < 0.02 C-Reactive Protein Total Protein Albumin Urine Color Urine Appearance Urine pH Ur Specific [place] Urine Protein Urine Glucose (UA) Urine Ketones Urine Blood Urine Nitrite Urine Bilirubin Urine Urobilinogen Ur Leukocyte Esterase 03/12/19 03/12/19 03/12/19 20:29 20:29 20:29 WBC 3.7 L RBC 4.22 Hgb 12.0 Hct 36.4 MCV 86.4 MCH 28.4 MCHC 32.9 RDW 14.0 Plt Count 174 MPV 8.0 Absolute Neuts (auto) 2.0 Neutrophils % 54.8 Lymphocytes % 28.8 Monocytes % 12.0 H Eosinophils % 3.9 Basophils % 0.5 Nucleated RBC % 0 ESR 37 H PT with INR INR PTT (Actin FS) VBG pH POC VBG pCO2 POC VBG pO2 VBG HCO3 VBG O2 Sat (Eddie) VBG Base Excess Sodium 137 Potassium 3.9 Chloride 108 H Carbon Dioxide 27 Anion Gap 2 L BUN 9.6 Creatinine 0.7 Est GFR (CKD-EPI)AfAm 124.87 Est GFR (CKD-EPI)NonAf 107.74 Random Glucose 99 Lactic Acid Calcium 8.2 L Total Bilirubin 0.2 AST 17 ALT 17 Alkaline Phosphatase 115 Troponin I C-Reactive Protein 1.7 H Total Protein 6.8 Albumin 2.6 L Urine Color Urine Appearance Urine pH Ur Specific [place] Urine Protein Urine Glucose (UA) Urine Ketones Urine Blood Urine Nitrite Urine Bilirubin Urine Urobilinogen Ur Leukocyte Esterase 03/12/19 03/13/19 03/13/19 21:37 02:18 07:43 WBC 2.7 L RBC 4.00 Hgb 11.4 L Hct 34.2 L MCV 85.5 MCH 28.5 MCHC 33.4 RDW 14.2 Plt Count 146 MPV 7.8 Absolute Neuts (auto) 1.5 Neutrophils % 55.3 Lymphocytes % 28.2 Monocytes % 12.6 H Eosinophils % 3.4 Basophils % 0.5 Nucleated RBC % 0 ESR PT with INR INR PTT (Actin FS) VBG pH 7.40 POC VBG pCO2 41.8 POC VBG pO2 57.4 H VBG HCO3 25.1 VBG O2 Sat (Eddie) 88.0 H VBG Base Excess 0.6 Sodium Potassium Chloride Carbon Dioxide Anion Gap BUN Creatinine Est GFR (CKD-EPI)AfAm Est GFR (CKD-EPI)NonAf Random Glucose Lactic Acid Calcium Total Bilirubin AST ALT Alkaline Phosphatase Troponin I C-Reactive Protein Total Protein Albumin Urine Color Yellow Urine Appearance Clear Urine pH 6.0 Ur Specific [place] 1.016 Urine Protein Negative Urine Glucose (UA) Negative Urine Ketones Negative Urine Blood Negative Urine Nitrite Negative Urine Bilirubin Negative Urine Urobilinogen 1.0 Ur Leukocyte Esterase Negative 03/13/19 07:43 WBC RBC Hgb Hct MCV MCH MCHC RDW Plt Count MPV Absolute Neuts (auto) Neutrophils % Lymphocytes % Monocytes % Eosinophils % Basophils % Nucleated RBC % ESR PT with INR INR PTT (Actin FS) VBG pH POC VBG pCO2 POC VBG pO2 VBG HCO3 VBG O2 Sat (Eddie) VBG Base Excess Sodium 140 Potassium 4.2 Chloride 113 H Carbon Dioxide 24 Anion Gap 3 L BUN 8.0 Creatinine 0.6 Est GFR (CKD-EPI)AfAm 133.04 Est GFR (CKD-EPI)NonAf 114.79 Random Glucose 98 Lactic Acid Calcium 7.6 L Total Bilirubin 0.3 AST 15 ALT 15 Alkaline Phosphatase 96 Troponin I C-Reactive Protein Total Protein 6.0 L Albumin 2.3 L Urine Color Urine Appearance Urine pH Ur Specific [place] Urine Protein Urine Glucose (UA) Urine Ketones Urine Blood Urine Nitrite Urine Bilirubin Urine Urobilinogen Ur Leukocyte Esterase Active Medications Generic Name Dose Route Start Last Admin Trade Name Freq PRN Reason Stop Dose Admin Acetaminophen 650 mg 03/13/19 15:09 Tylenol - PO Q6H PRN PAIN LEVEL 6-10 Chlordiazepoxide HCl 10 mg 03/16/19 00:00 Librium - PO 03/16/19 23:59 Q12H PRN Signs/symptoms of Withdrawal Chlordiazepoxide HCl 10 mg 03/13/19 06:44 Librium - PO 03/15/19 23:59 Q8H PRN Signs/symptoms of Withdrawal Chlordiazepoxide HCl 25 mg 03/13/19 13:00 03/13/19 14:22 Librium - PO 03/14/19 21:01 25 mg Q8H KANDI Administration Chlordiazepoxide HCl 15 mg 03/15/19 05:00 Librium - PO 03/15/19 21:01 Q8H KANDI Chlordiazepoxide HCl 10 mg 03/16/19 05:00 Librium - PO 03/16/19 21:01 Q8H KANDI Chlordiazepoxide HCl 10 mg 03/17/19 05:00 Librium - PO 03/17/19 05:01 ONCE ONE Enoxaparin Sodium 40 mg 03/13/19 10:00 03/13/19 09:58 Lovenox - SQ 40 mg DAILY KANDI Administration Folic Acid 1 mg 03/14/19 10:00 Folic Acid - PO DAILY KANDI Sodium Chloride 1,000 mls @ 100 mls/hr 03/13/19 04:00 03/13/19 05:28 Normal Saline - IV Not Given ASDIR KANDI Piperacillin Sod/Tazobactam 50 mls @ 100 mls/hr 03/13/19 18:00 Sod 3.375 gm/ Dextrose IVPB Q8H-IV KANDI Protocol Levetiracetam 500 mg 03/13/19 10:00 03/13/19 09:58 Keppra - PO 500 mg BID KANDI Administration Methadone HCl 20 mg 03/14/19 16:38 Dolophine - PO 03/14/19 16:39 ONCE ONE Multivitamins/Minerals/Vitamin C 1 tab 03/14/19 10:00 Tab-A-Vit - PO DAILY KANDI Thiamine HCl 100 mg 03/14/19 10:00 Vitamin B1 - PO DAILY KANDI ASSESSMENT/PLAN: 54 year old male with PMH of asthma, epilepsy, LLE wound, and polysubstance abuse. He presnted to the ER with complaints of pain in his LLE, admitted for suspected cellulitis. #LLE foot ulcer vs OM - Zosyn continue, d/c vanc given low suspicion for MRSA per ID (Dr. Toussaint) recs. - X ray showed no evidence of osteo, MRI ordered to confirm - ID consult placed - Podiatry consult placed - Wound care recommend clean dressing with calcium aginate and gauze, will need compression dressing once cellulitis resolves., - Blood Cx pending. #Substance abuse - continue Methadone 20mg until Dr. Ugarte comes to see pt and can confirm home dose. - Librium protocol started for COWS of 10 in ED - Banana bag given - Seizure precautions #Hypotension - N/S @ 100 - May be due to amyloidosis, hx of IV drug use. - Echo EF 55-60% #FEN - N/S @ 100 #DVT - Lovenox 40mg Visit type - Emergency Visit Emergency Visit: Yes ED Registration Date: 03/12/19 Care time: The patient presented to the Emergency Department on the above date and was hospitalized for further evaluation of their emergent condition. - New Patient This patient is new to me today: No - Critical Care Critical Care patient: No - Discharge Referral Referred to [facility] Med P.C.: No ATTENDING PHYSICIAN STATEMENT I saw and evaluated the patient. I reviewed the resident's note and discussed the case with the resident. I agree with the resident's findings and plan as documented. SUBJECTIVE: OBJECTIVE: ASSESSMENT AND PLAN:
--- NOTE | 2019-03-13 17:40 | PN ---
[facility] Progress Note (SOAP) Subjective: pt referred for consultation , reports heroin iV x 30 years , ETOh daily 2 x 6 packs beer. w/ h/o seizures . Pt reports feeling much better today . Per MR was given Methadone 20 mg . Active Medications Acetaminophen (Tylenol -) 650 mg PO Q6H PRN PRN Reason: PAIN LEVEL 6-10 Chlordiazepoxide HCl (Librium -) 10 mg PO Q12H PRN PRN Reason: Signs/symptoms of Withdrawal Stop: 03/16/19 23:59 Chlordiazepoxide HCl (Librium -) 10 mg PO Q8H PRN PRN Reason: Signs/symptoms of Withdrawal Stop: 03/15/19 23:59 Chlordiazepoxide HCl (Librium -) 25 mg PO Q8H [facility] Stop: 03/14/19 21:01 Last Admin: 03/13/19 14:22 Dose: 25 mg Chlordiazepoxide HCl (Librium -) 15 mg PO Q8H [facility] Stop: 03/15/19 21:01 Chlordiazepoxide HCl (Librium -) 10 mg PO Q8H [facility] Stop: 03/16/19 21:01 Chlordiazepoxide HCl (Librium -) 10 mg PO ONCE ONE Stop: 03/17/19 05:01 Enoxaparin Sodium (Lovenox -) 40 mg SQ DAILY [facility] Last Admin: 03/13/19 09:58 Dose: 40 mg Folic Acid (Folic Acid -) 1 mg PO DAILY [facility] Sodium Chloride (Normal Saline -) 1,000 mls @ 100 mls/hr IV ASDIR [facility] Last Admin: 03/13/19 05:28 Dose: Not Given Piperacillin Sod/Tazobactam (Sod 3.375 gm/ Dextrose) 50 mls @ 100 mls/hr IVPB Q8H-IV [facility]; Protocol Levetiracetam (Keppra -) 500 mg PO BID [facility] Last Admin: 03/13/19 09:58 Dose: 500 mg Multivitamins/Minerals/Vitamin C (Tab-A-Vit -) 1 tab PO DAILY [facility] Thiamine HCl (Vitamin B1 -) 100 mg PO DAILY [facility] Objective: Abnormal Lab Results 03/12/19 03/12/19 03/12/19 20:29 20:29 20:29 WBC Hgb Hct Monocytes % ESR 37 H PT with INR 14.40 H INR 1.22 H POC VBG pO2 VBG O2 Sat (Eddie) Chloride 108 H Anion Gap 2 L Calcium 8.2 L C-Reactive Protein 1.7 H Total Protein Albumin 2.6 L 03/12/19 03/13/19 03/13/19 20:29 02:18 07:43 WBC 3.7 L 2.7 L Hgb 11.4 L Hct 34.2 L Monocytes % 12.0 H 12.6 H ESR PT with INR INR POC VBG pO2 57.4 H VBG O2 Sat (Eddie) 88.0 H Chloride Anion Gap Calcium C-Reactive Protein Total Protein Albumin 03/13/19 07:43 WBC Hgb Hct Monocytes % ESR PT with INR INR POC VBG pO2 VBG O2 Sat (Eddie) Chloride 113 H Anion Gap 3 L Calcium 7.6 L C-Reactive Protein Total Protein 6.0 L Albumin 2.3 L Vital Signs - 24 hr 03/12/19 03/13/19 03/13/19 18:11 02:21 03:50 Temperature 98.4 F 97.9 F 98.0 F Pulse Rate 68 57 L Pulse Rate [ 58 L Apical] Respiratory 16 18 18 Rate Blood Pressure 94/56 L 117/73 Blood Pressure 101/61 [Left Arm] O2 Sat by Pulse 100 100 Oximetry (%) 03/13/19 03/13/19 03/13/19 03:57 09:00 15:00 Temperature 98.8 F 98.4 F Pulse Rate 54 L 57 L Pulse Rate [ Apical] Respiratory 18 18 Rate Blood Pressure 100/50 L 104/57 L Blood Pressure [Left Arm] O2 Sat by Pulse 100 98 Oximetry (%) wnwd , resting comfortably in bed . 03/13/19 17:42 Assessment: Vital Signs - 24 hr 03/12/19 03/13/19 03/13/19 18:11 02:21 03:50 Temperature 98.4 F 97.9 F 98.0 F Pulse Rate 68 57 L Pulse Rate [ 58 L Apical] Respiratory 16 18 18 Rate Blood Pressure 94/56 L 117/73 Blood Pressure 101/61 [Left Arm] O2 Sat by Pulse 100 100 Oximetry (%) 03/13/19 03/13/19 03/13/19 03:57 09:00 15:00 Temperature 98.8 F 98.4 F Pulse Rate 54 L 57 L Pulse Rate [ Apical] Respiratory 18 18 Rate Blood Pressure 100/50 L 104/57 L Blood Pressure [Left Arm] O2 Sat by Pulse 100 98 Oximetry (%) Abnormal Lab Results 03/12/19 03/12/19 03/12/19 20:29 20:29 20:29 WBC Hgb Hct Monocytes % ESR 37 H PT with INR 14.40 H INR 1.22 H POC VBG pO2 VBG O2 Sat (Eddie) Chloride 108 H Anion Gap 2 L Calcium 8.2 L C-Reactive Protein 1.7 H Total Protein Albumin 2.6 L 03/12/19 03/13/19 03/13/19 20:29 02:18 07:43 WBC 3.7 L 2.7 L Hgb 11.4 L Hct 34.2 L Monocytes % 12.0 H 12.6 H ESR PT with INR INR POC VBG pO2 57.4 H VBG O2 Sat (Eddie) 88.0 H Chloride Anion Gap Calcium C-Reactive Protein Total Protein Albumin 03/13/19 07:43 WBC Hgb Hct Monocytes % ESR PT with INR INR POC VBG pO2 VBG O2 Sat (Eddie) Chloride 113 H Anion Gap 3 L Calcium 7.6 L C-Reactive Protein Total Protein 6.0 L Albumin 2.3 L OUD - Methadone taper AUD - already on Librium taper Plan: OUD - Methadone taper , modified 2/2 prolonged QTc . AUD - already on Librium taper pt to consider inpt rehab after medical clearance.
[2019-03-13] MEDS: PIPERACILLIN/TAZOB 3.375 GM 3.375 GM in DEXTROSE 5%-WATER - 50 ML IVPB SCH (17:57)
--- NOTE | 2019-03-13 18:09 | CONSULT ---
Consult - text type - Consultation Consultation Note: 54 yo M h/o LLE wound x 2 years getting treated at a wound care center in [place]. Admitted because of increased pain and swelling in his LLE. Pt last saw his wound care center a couple weeks ago. Pt has history of polysubstance abuse. States had not had f/u with them recently b/c felt the wound was stalled. O: Left lower extremity with no palpable pulses, difusse pitting edema noted throughout the entire left lower extremity, mild pop noted, no wounds on the feet noted, anterolateral ankle ulceration noted roughly 15cm x 10 cm in size, healthy granular base noted, no erythema, serous drainage noted, anterior tibial ulceraiton roughly 3 x 2 cm , serous drainage, neither probe to bone A: Infected left ankel ulceration P: Evaluated and reviewed will f/u on MRI No acute surgical intervention at this time Will need f/u in the wound care center be it here or in [place] for compression and grafting If + for osteo will need bone biopsy. Will follow
[2019-03-14] MEDS ORDERED: PIPERACILLIN/TAZOBACTAM 3.375 GM VIAL IVPB ONE ×2 (01:18→10:02)
[2019-03-14] MEDS ORDERED: DEXTROSE 5%-WATER - 50 ML IVPB ONE ×2 (01:18→10:02)
[2019-03-14] MEDS: PIPERACILLIN/TAZOB 3.375 GM 3.375 GM in DEXTROSE 5%-WATER - 50 ML IVPB SCH ×3 (01:22→19:57)
[2019-03-14] MEDS: chlordiazePOXIDE HCL 25 MG CAPSULE PO SCH ×2 (05:58→13:09)
[2019-03-14] MEDS ORDERED: MULTIVITAMINS (DAILY MVI) TABLET (FP) PO SCH (10:00)
[2019-03-14] MEDS ORDERED: METHADONE HCL 10 MG TABLET PO ONE ×2 (10:00→16:38)
[2019-03-14] MEDS ORDERED: METHADONE HCL 5 MG TABLET (FOR DETOX USE ONLY) PO ONE ×2 (10:00)
[2019-03-14] MEDS ORDERED: THIAMINE HCL 100 MG TABLET (FP) PO SCH (10:00)
[2019-03-14] MEDS ORDERED: FOLIC ACID 1 MG TABLET (FP) PO SCH (10:00)
[2019-03-14] MEDS ORDERED: PT OWN MED DRAWER 7, Y5N ONE ×2 (10:01→13:04)
[2019-03-14] MEDS: ENOXAPARIN NA (PORCINE) 40 MG/0.4 ML DISP.SYRIN SQ SCH (10:07)
[2019-03-14] MEDS: levETIRAcetam 500 MG TABLET (FP) PO SCH (10:07)
[2019-03-14 10:16] LABS: BASO % 0.6 % (0-2.0); EOS % 3.7 % (0-4.5); HEMATOCRIT 37.6 % (35.4-49); HEMOGLOBIN 12.5 GM/dL (11.7-16.9); LYMPH % 31.5 % (8-40); MCH 28.4 pg (25.7-33.7); MCHC 33.1 g/dl (32.0-35.9); MEAN CELL VOLUME 85.8 fl (80-96); MEAN PLT VOLUME 8.1 fl (7.5-11.1); MONO % 6.3 % (3.8-10.2); NEUT % 57.9 % (42.8-82.8); PLATELET COUNT 149 K/MM3 (134-434); RBC 4.39 M/mm3 (4.00-5.60); WHITE BLOOD COUNT 2.8 K/mm3 (4.0-10.0)
[2019-03-14 10:29] LABS: ALBUMIN 2.3 g/dl (3.4-5.0); BILIRUBIN,TOTAL 0.3 mg/dL (0.2-1); BLOOD UREA NITROGEN 9.7 mg/dL (7-18); CALCIUM 8.1 mg/dL (8.5-10.1); CREATININE 0.7 mg/dL (0.55-1.3); POTASSIUM 3.7 mmol/L (3.5-5.1); TOT PROT 6.6 g/dl (6.4-8.2)
[2019-03-14 11:53] LABS: MAGNESIUM 2.1 mg/dL (1.8-2.4); PHOSPHOROUS 3.2 mg/dL (2.5-4.9)
--- NOTE | 2019-03-14 15:30 | PN ---
Teaching Attending Note Name of Resident: Ovi Johnson ATTENDING PHYSICIAN STATEMENT I saw and evaluated the patient. I reviewed the resident's note and discussed the case with the resident. I agree with the resident's findings and plan as documented. SUBJECTIVE: improved pain/tenderness LLE. No fever/chills. OBJECTIVE: Afebrile, Borderline BP Last Vital Signs Temp Pulse Resp BP Pulse Ox 98 F 60 20 105/55 L 98 03/14/19 09:00 03/14/19 09:00 03/14/19 09:00 03/14/19 09:00 03/13/19 21:00 Heart - S1, S2, RRR Lungs - clear to auscultation Abdomen - Soft, non-tender. Bowel Sounds normal. Extremities - L foot edema, erythema, tenderness improved. Large ulcer L Lateral malleolus. Laboratory Results - last 24 hr 03/14/19 03/14/19 09:00 09:00 WBC 2.8 L RBC 4.39 Hgb 12.5 Hct 37.6 MCV 85.8 MCH 28.4 MCHC 33.1 RDW 14.0 Plt Count 149 MPV 8.1 Absolute Neuts (auto) 1.6 Neutrophils % 57.9 Lymphocytes % 31.5 Monocytes % 6.3 Eosinophils % 3.7 Basophils % 0.6 Nucleated RBC % 0 Sodium 143 Potassium 3.7 Chloride 112 H Carbon Dioxide 24 Anion Gap 6 L BUN 9.7 Creatinine 0.7 Est GFR (CKD-EPI)AfAm 124.87 Est GFR (CKD-EPI)NonAf 107.74 Random Glucose 118 H Calcium 8.1 L Phosphorus 3.2 Magnesium 2.1 Total Bilirubin 0.3 AST 18 ALT 17 Alkaline Phosphatase 99 Total Protein 6.6 Albumin 2.3 L Current Medications Generic Name Dose Route Start Last Admin Trade Name Freq PRN Reason Stop Dose Admin Acetaminophen 650 mg 03/13/19 15:09 Tylenol - PO Q6H PRN PAIN LEVEL 6-10 Chlordiazepoxide HCl 10 mg 03/16/19 00:00 Librium - PO 03/16/19 23:59 Q12H PRN Signs/symptoms of Withdrawal Chlordiazepoxide HCl 10 mg 03/13/19 06:44 03/14/19 05:58 Librium - PO 03/15/19 23:59 10 mg Q8H PRN Administration Signs/symptoms of Withdrawal Chlordiazepoxide HCl 25 mg 03/13/19 13:00 03/14/19 13:09 Librium - PO 03/14/19 21:01 25 mg Q8H KANDI Administration Chlordiazepoxide HCl 15 mg 03/15/19 05:00 Librium - PO 03/15/19 21:01 Q8H KANDI Chlordiazepoxide HCl 10 mg 03/16/19 05:00 Librium - PO 03/16/19 21:01 Q8H K[facility]I Chlordiazepoxide HCl 10 mg 03/17/19 05:00 Librium - PO 03/17/19 05:01 ONCE ONE Enoxaparin Sodium 40 mg 03/13/19 10:00 03/14/19 10:07 Lovenox - SQ 40 mg DAILY [facility] Administration Folic Acid 1 mg 03/14/19 10:00 03/14/19 10:06 Folic Acid - PO 1 mg DAILY [facility] Administration Sodium Chloride 1,000 mls @ 100 mls/hr 03/13/19 04:00 03/13/19 05:28 Normal Saline - IV Not Given ASDIR KANDI Piperacillin Sod/Tazobactam 50 mls @ 100 mls/hr 03/13/19 18:00 03/14/19 10:12 Sod 3.375 gm/ Dextrose IVPB Not Given Q8H-IV [facility] Protocol Levetiracetam 500 mg 03/13/19 10:00 03/14/19 10:07 Keppra - PO 500 mg BID [facility] Administration Methadone HCl 5 mg 03/15/19 10:00 Dolophine - PO 03/15/19 10:01 ONCE ONE Multivitamins/Minerals/Vitamin C 1 tab 03/14/19 10:00 03/14/19 10:07 Tab-A-Vit - PO 1 tab DAILY [facility] Administration Thiamine HCl 100 mg 03/14/19 10:00 03/14/19 10:07 Vitamin B1 - PO 100 mg DAILY [facility] Administration Home Medications Medication Instructions Recorded Albuterol Sulfate 0.042% 1 inhaler PO Q4HWA PRN 03/12/19 Silver/Calcium Alginate [Algicell 1 patch DAILY 03/12/19 Ag 3/4"X12" Dressing] levETIRAcetam [Keppra -] 500 mg PO BID 03/12/19 ASSESSMENT AND PLAN: 54 year old male with history of Asthma, Epilepsy, Chronic LLE wound (follows with wound care in [place]), and polysubstance abuse (Heroin, Alcohol, cocaine , tobacco), sent from with worsening pain/erythema/tenderness. 1. Infected LLE Ulcer with Cellulitis Blood Cx negative MRI LLE to exclude OM - pending Afebrile Hemodynamically Stable. Continue Zosyn as per ID. Seen by Podiatry - recommend no surgical intervention, Wound Care follow up as out-patient. Dressing recommendations - calcium aginate and gauze, will need compression dressing once cellulitis resolves 2. Polysbstance Abuse (Heroin, Alcohol, cocaine, tobacco) Seen by Addiction Medicine - on tapering course of Methadone, Librium protocol. Thiamine, MVI, Folate. Can return to [facility] if MRI negative. 3. Seizure Disorder Continue Keppra. DVT - Lovenox SQ
--- NOTE | 2019-03-14 16:26 | PN ---
Physical Exam: SUBJECTIVE: Patient seen and examined. Asymptomatic and afebrile, No overnight events. Denies f/c/n/v/d/sob,chest pain. OBJECTIVE: Vital Signs Period Temp Pulse Resp BP Sys/Fraga Pulse Ox Last 24 Hr 98 F-98.5 F 52-70 18-20 100-148/44-72 98 GENERAL: The patient is awake, alert, and fully oriented, in no acute distress. EYES: PERRL, extraocular movements intact, sclera anicteric, conjunctiva clear. No ptosis. ENT: oropharynx clear without exudates, moist mucous membranes. NECK: Trachea midline, full range of motion, supple. LUNGS: Breath sounds equal, clear to auscultation bilaterally, no wheezes, no crackles, HEART: Regular rate and rhythm, S1, S2 without murmur, rub or gallop. ABDOMEN: Soft, nontender, nondistended, normoactive bowel sounds, no guarding, EXTREMITIES: 2+ pulses, warm, well-perfused, no edema. NEUROLOGICAL: Normal speech, gait not observed. SKIN: Warm, dry, normal turgor, no rashes or lesions noted Laboratory Results - last 24 hr 03/14/19 03/14/19 09:00 09:00 WBC 2.8 L RBC 4.39 Hgb 12.5 Hct 37.6 MCV 85.8 MCH 28.4 MCHC 33.1 RDW 14.0 Plt Count 149 MPV 8.1 Absolute Neuts (auto) 1.6 Neutrophils % 57.9 Lymphocytes % 31.5 Monocytes % 6.3 Eosinophils % 3.7 Basophils % 0.6 Nucleated RBC % 0 Sodium 143 Potassium 3.7 Chloride 112 H Carbon Dioxide 24 Anion Gap 6 L BUN 9.7 Creatinine 0.7 Est GFR (CKD-EPI)AfAm 124.87 Est GFR (CKD-EPI)NonAf 107.74 Random Glucose 118 H Calcium 8.1 L Phosphorus 3.2 Magnesium 2.1 Total Bilirubin 0.3 AST 18 ALT 17 Alkaline Phosphatase 99 Total Protein 6.6 Albumin 2.3 L Active Medications Generic Name Dose Route Start Last Admin Trade Name Freq PRN Reason Stop Dose Admin Acetaminophen 650 mg 03/13/19 15:09 Tylenol - PO Q6H PRN PAIN LEVEL 6-10 Chlordiazepoxide HCl 10 mg 03/16/19 00:00 Librium - PO 03/16/19 23:59 Q12H PRN Signs/symptoms of Withdrawal Chlordiazepoxide HCl 10 mg 03/13/19 06:44 03/14/19 05:58 Librium - PO 03/15/19 23:59 10 mg Q8H PRN Administration Signs/symptoms of Withdrawal Chlordiazepoxide HCl 25 mg 03/13/19 13:00 03/14/19 13:09 Librium - PO 03/14/19 21:01 25 mg Q8H [facility]I Administration Chlordiazepoxide HCl 15 mg 03/15/19 05:00 Librium - PO 03/15/19 21:01 Q8H K[facility]I Chlordiazepoxide HCl 10 mg 03/16/19 05:00 Librium - PO 03/16/19 21:01 Q8H [facility] Chlordiazepoxide HCl 10 mg 03/17/19 05:00 Librium - PO 03/17/19 05:01 ONCE ONE Enoxaparin Sodium 40 mg 03/13/19 10:00 03/14/19 10:07 Lovenox - SQ 40 mg DAILY [facility] Administration Folic Acid 1 mg 03/14/19 10:00 03/14/19 10:06 Folic Acid - PO 1 mg DAILY [facility] Administration Piperacillin Sod/Tazobactam 50 mls @ 100 mls/hr 03/13/19 18:00 03/14/19 10:12 Sod 3.375 gm/ Dextrose IVPB Not Given Q8H-IV [facility] Protocol Levetiracetam 500 mg 03/13/19 10:00 03/14/19 10:07 Keppra - PO 500 mg BID [facility] Administration Methadone HCl 5 mg 03/15/19 10:00 Dolophine - PO 03/15/19 10:01 ONCE ONE Multivitamins/Minerals/Vitamin C 1 tab 03/14/19 10:00 03/14/19 10:07 Tab-A-Vit - PO 1 tab DAILY [facility] Administration Thiamine HCl 100 mg 03/14/19 10:00 03/14/19 10:07 Vitamin B1 - PO 100 mg DAILY [facility] Administration ASSESSMENT/PLAN: 54 y/o M Asthma, Epilepsy, Chronic LLE wound, and polysubstance abuse (Heroin, Alcohol, cocaine, tobacco), [facility], tenderness and erythema of the left lower extremity is admitted for cellulitis #Cellulitis of the LLE ulcer BCx negative MRI of the ankle- pending Cont Zosyn As per podiatry no intervention needed, f/u outpt wound care Dressing recommendations - calcium aginate and gauze, will need compression dressing once cellulitis resolves #Substance abuse Heroin, Alcohol, cocaine, tobacco Thiamine, folate on methadone and librium protocoal Can return to [facility] if MRI is neg #Seizure disorder Keppra DVTppx Lovenox SQ Visit type - Emergency Visit Emergency Visit: Yes ED Registration Date: 03/12/19 Care time: The patient presented to the Emergency Department on the above date and was hospitalized for further evaluation of their emergent condition. - New Patient This patient is new to me today: Yes Date on this admission: 03/14/19 - Critical Care Critical Care patient: No - Discharge Referral Referred to [facility] Med P.C.: No ATTENDING PHYSICIAN STATEMENT I saw and evaluated the patient. I reviewed the resident's note and discussed the case with the resident. I agree with the resident's findings and plan as documented. SUBJECTIVE: OBJECTIVE: ASSESSMENT AND PLAN:
[2019-03-14 21:14] VITALS: BP 104/71; PULSE 59; TEMP 97.7
--- NOTE | 2019-03-14 23:15 | DS ---
Physical Exam: SUBJECTIVE: Patient seen and examined. Asymptomatic and afebrile. No overnight event. Pt is comfortable. Denies f/c/n/v/d/sob, chest pain. OBJECTIVE: Vital Signs Period Temp Pulse Resp BP Sys/Fraga Pulse Ox Last 24 Hr 97.7 F-98.4 F 53-70 18-20 91-148/50-72 PHYSICAL EXAM GENERAL: The patient is awake, alert, and fully oriented, in no acute distress. EYES: PERRL, extraocular movements intact, sclera anicteric, conjunctiva clear. No ptosis. ENT: oropharynx clear without exudates, moist mucous membranes. NECK: Trachea midline, full range of motion, supple. LUNGS: Breath sounds equal, clear to auscultation bilaterally, no wheezes, no crackles, HEART: Regular rate and rhythm, S1, S2 without murmur, rub or gallop. ABDOMEN: Soft, nontender, nondistended, normoactive bowel sounds, no guarding, EXTREMITIES: 2+ pulses, warm, well-perfused, no edema. NEUROLOGICAL: Normal speech, gait not observed. SKIN: Warm, dry, normal turgor, no rashes or lesions noted LABS Laboratory Results - last 24 hr 03/14/19 03/14/19 09:00 09:00 WBC 2.8 L RBC 4.39 Hgb 12.5 Hct 37.6 MCV 85.8 MCH 28.4 MCHC 33.1 RDW 14.0 Plt Count 149 MPV 8.1 Absolute Neuts (auto) 1.6 Neutrophils % 57.9 Lymphocytes % 31.5 Monocytes % 6.3 Eosinophils % 3.7 Basophils % 0.6 Nucleated RBC % 0 Sodium 143 Potassium 3.7 Chloride 112 H Carbon Dioxide 24 Anion Gap 6 L BUN 9.7 Creatinine 0.7 Est GFR (CKD-EPI)AfAm 124.87 Est GFR (CKD-EPI)NonAf 107.74 Random Glucose 118 H Calcium 8.1 L Phosphorus 3.2 Magnesium 2.1 Total Bilirubin 0.3 AST 18 ALT 17 Alkaline Phosphatase 99 Total Protein 6.6 Albumin 2.3 L Home Medications Medication Instructions Recorded Albuterol Sulfate 0.042% 1 inhaler PO Q4HWA PRN 03/12/19 Silver/Calcium Alginate [Algicell 1 patch DAILY 03/12/19 Ag 3/4"X12" Dressing] levETIRAcetam [Keppra -] 500 mg PO BID 03/12/19 Amoxicillin/Potassium Clav 1 each PO BID #14 tablet 03/14/19 [Augmentin 875-125 Tablet] Folic Acid - 1 mg PO DAILY tablet 03/14/19 Multivitamins [Multivit ([facility] 1 tab PO DAILY tab 03/14/19 Formulary)] Thiamine HCl [Vitamin B1 -] 100 mg PO DAILY tablet 03/14/19 Microbiology 03/12/19 20:29 Blood - Peripheral Venous Blood Culture - Preliminary NO GROWTH OBTAINED AFTER 48 HOURS, INCUBATION TO CONTINUE FOR 3 DAYS. 03/12/19 20:29 Blood - Peripheral Venous Blood Culture - Preliminary NO GROWTH OBTAINED AFTER 48 HOURS, INCUBATION TO CONTINUE FOR 3 DAYS. 03/12/19 21:37 Urine - Urine Clean Catch Urine Culture - Final NO GROWTH OBTAINED HOSPITAL COURSE: Date of Admission:03/12/19 54 y/o M Asthma, Epilepsy, Chronic LLE wound, and polysubstance abuse (Heroin, Alcohol, cocaine, tobacco), presented from [facility] for pain, tenderness and erythema of the left lower extremity is admitted for cellulitis. BCx came back negative. MRI of the ankle showed no OM, no Fx, extensive soft tissue swelling of the left ankle. Pt was started on zosyn and podiatry was consulted. As per podiatry no intervention is needed at this time and to f/u outpt wound care is sufficient. Pt was also started on librium and methadone protocols while in the hospital. After pt's symptoms improved, his abx was switched to Augment 875 PO BID and discharged home w/ referral to Dr. Diaz's, vascular, and Dr. Montana's , podiatry, wound clinic. MRI of the ankle showed no OM, no Fx, extensive soft tissue swelling of the left ankle. X ray showed no evidence of osteo ECHO: normal EF, mild MR Dressing recommendations - calcium aginate and gauze, will need compression dressing, f/u at wound clinic Can use other alternatives like Silver containing dressings, or alginate alone like Algosteril or Medihoney. Change dressings daily. Keep wound clean and dry. Can use gauze and curlex/bia wrap to wrap the foot. Date of Discharge: 03/14/19 Minutes to complete discharge: 40 Discharge Summary Problems reviewed: Yes Reason For Visit: ALCOHOL ABUSE,COCAINE ABUSE,ULCERATIVE LESION, Current Active Problems Polysubstance (excluding opioids) dependence (Acute) Asthma (Chronic) Cellulitis of left lower extremity (Chronic) Epilepsy (Chronic) Heroin dependence (Chronic) Marijuana dependence (Chronic) Condition: Stable - Instructions Diet, Activity, Other Instructions: You were admitted for an infection in your skin of your foot. While you were here we did imaging and the infection is not in your bone. To complete treatment of the skin infection please take the antibiotics. Augmentin 875 mg by mouth twice a day for 7 days Make sure to keep the are clean and dry so it can heal. While you were here we started to on medication to help treat your alcohol and heroin use. You will finish this treatment at [facility]. Please make an appointment with the shuttle fitting supervisor to continue management of your foot. Please follow up with you wound care clinic in [place] to continue to treat your foot wound, you can also follow with our clinic if you prefer. Continue your home medications as prescribed. Follow up with your primary care in one week. Return to the Emergency Department with nausea, vomiting, chills, fever, or worsening of symptoms. Referrals: Jorge Toussaint MD [Staff Physician] - Rodriguez Montana DPM [Staff Physician] - Eyad Diaz DO [Staff Physician] - Kassidy Ugarte DO [Staff Physician] - Disposition: I.P. ALCOHOL/SUBS ABUSE REHAB - Home Medications Comprehensive Discharge Medication List: Ambulatory Orders Albuterol Sulfate 0.042% 1 inhaler PO Q4HWA PRN 03/12/19 Silver/Calcium Alginate [Algicell Ag 3/4"X12" Dressing] 1 patch DAILY 03/12/19 levETIRAcetam [Keppra -] 500 mg PO BID 03/12/19 Amoxicillin/Potassium Clav [Augmentin 875-125 Tablet] 1 each PO BID #14 tablet 03/14/19 Folic Acid - 1 mg PO DAILY tablet 03/14/19 Multivitamins [Multivit ([facility] Formulary)] 1 tab PO DAILY tab 03/14/19 Thiamine HCl [Vitamin B1 -] 100 mg PO DAILY tablet 03/14/19 This patient is new to me today: Yes Date on this admission: 03/14/19 Emergency Visit: Yes ED Registration Date: 03/12/19 Care time: The patient presented to the Emergency Department on the above date and was hospitalized for further evaluation of their emergent condition. Critical Care patient: No - Discharge Referral Referred to [facility] No ATTENDING PHYSICIAN STATEMENT I saw and evaluated the patient. I reviewed the resident's note and discussed the case with the resident. I agree with the resident's findings and plan as documented. SUBJECTIVE: OBJECTIVE: ASSESSMENT AND PLAN:
[2019-03-15] MEDS ORDERED: chlordiazePOXIDE 5 MG CAPSULE PO SCH (05:00)
[2019-03-15] MEDS ORDERED: METHADONE HCL 10 MG TABLET (FOR DETOX USE ONLY) PO ONE (10:00)
[2019-03-15] MEDS ORDERED: METHADONE HCL 5 MG TABLET PO ONE (10:00)
[2019-03-16] MEDS ORDERED: chlordiazePOXIDE HCL 10 MG CAPSULE PO SCH (05:00)
[2019-03-16] MEDS ORDERED: METHADONE HCL 5 MG TABLET (FOR DETOX USE ONLY) PO ONE (06:00)
[2019-03-17] MEDS ORDERED: chlordiazePOXIDE HCL 10 MG CAPSULE PO ONE (05:00)
== END 2019-03-14 20:20 | disposition other institution (70) | DRG 383 ==
LOC: JER 17:57 → JERBED 23:41 → J8W 03-13 03:14
PROVIDERS: ADMIT Internal Medicine
PROC: HZ2ZZZZ Detoxification Services for Substance Abuse Treatment (ICD-10-PCS; principal; 2019-03-14)
DX: L03.116 Cellulitis of left lower limb (principal); J45.20 Mild intermittent asthma, uncomplicated; G40.909 Epilepsy, unspecified, not intractable, without status epilepticus; F11.20 Opioid dependence, uncomplicated; F12.20 Cannabis dependence, uncomplicated; F10.230 Alcohol dependence with withdrawal, uncomplicated; F17.210 Nicotine dependence, cigarettes, uncomplicated; L97.828 Non-pressure chronic ulcer of other part of left lower leg with other specified severity; I89.0 Lymphedema, not elsewhere classified; E88.09 Other disorders of plasma-protein metabolism, not elsewhere classified; F14.20 Cocaine dependence, uncomplicated; E46 Unspecified protein-calorie malnutrition; Z68.24 Body mass index [BMI] 24.0-24.9, adult
CPT/HCPCS: 36415; 71046-TC-FY; 73630-TC-LT; 73719-LT; 80053; 81003; 82803; 83605; 83735; 84100; 84484; 85025; 85610; 85651; 85730; 86140; 87040; 87086; 93005; 93010; 93306-TC; 99285-25; C1887; J0131; J7030

== ENCOUNTER 2019-03-14 20:55 | Inpatient (IN) | payer OTHER ==
[~2019-03-14 20:55] MED LIST: COLLOIDAL OATMEAL 1 BAR EACH TP ONE
[2019-03-14 21:30] VITALS: BMI 24.4
--- NOTE | 2019-03-14 21:56 | HP ---
COWS - Scale Resting Pulse: 0= MO 80 or Below Sweatin= No chills or Flushing Restless Observation: 0= Sits Still Pupil Size: 0= Normal to Room Light Bone or Joint Aches: 2= Severe Diffuse Aches Runny Nose/ Eye Tearin= Nasal Congestion GI Upset > 30mins: 1= Stomach Cramp Tremor Observation: 2= Slight Tremor Visible Yawning Observation: 0= None Anxiety or Irritability: 4=Extreme Anxiety Goose Flesh Skin: 0=Smooth Skin COWS Score: 10 CIWA Score Nausea/Vomitin Muscle Tremors: 2 Anxiety: 2 Agitation: 0-Normal Activity Paroxysmal Sweats: 2 Orientation: 0-Oriented Tacttile Disturbances: 0-None Auditory Disturbances: 0-None Visual Disturbances: 0-None Headache: 0-None Present CIWA-Ar Total Score: 8 - Admission Criteria OASAS Guidelines: Admission for Medically Managed Detox: Requires at least one of the followin. CIWA greater than 12 2. Seizures within the past 24 hours 3. Delirium tremens within the past 24 hours 4. Hallucinations within the past 24 hours 5. Acute intervention needed for co occurring medical disorder 6. Acute intervention needed for co occurring psychiatric disorder 7. Severe withdrawal that cannot be handled at a lower level of care (continued vomiting, continued diarrhea, abnormal vital signs) requiring intravenous medication and/or fluids 8. Admitting History and Physical - Past Medical History [employer]: Yes: Seizure Pulmonary: Yes: Asthma Dermatology: Yes: Other (ulceration of LLE) - Smoking History Smoking history: Current every day smoker Have you smoked in the past 12 months: Yes Aproximately how many cigarettes per day: 20 - Alcohol/Substance Use Hx Alcohol Use: No Number of Drinks Daily: 12 (cans beer ) History of Substance Use: reports: Cocaine, Heroin Date of Last Use: 03/11/19 Admission [facility] Chief Complaint: Alcohol and heroin withdrawal symptoms Allergies/Adverse Reactions: Allergies Allergy/AdvReac Type Severity Reaction Status Date / Time No Known Allergies Allergy Verified 03/14/19 21:30 History of Present Illness: 54 years old male with 30 years of heroin dependence and 33 years of alcohol dependence is seeking admission to detox. Patient was received from [facility] where he was admitted for left foot infection. Patient states that his last detox was at [facility] and reports nine months of sobriety. He has medical history of asthma, epilepsy, Hep. 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 Patient denies psych. history and suicidal ideation at this time. He reports that his detoxification was only initiated when he was transferred from emergency room to the floor this morning. Exam Limitations: No Limitations - Ebola screening Have you traveled outside of the country in the last 21 days: No (N) Have you had contact with anyone from an Ebola affected area: No Do you have a fever: No - Review of Systems Constitutional: Malaise, Night Sweats EENT: reports: No Symptoms Reported Respiratory: reports: No Symptoms reported Cardiac: reports: No Symptoms Reported GI: reports: Diarrhea, Poor Appetite, Poor Fluid Intake, Vomiting, Abdominal cramping : reports: No Symptoms Reported Musculoskeletal: reports: Back Pain Integumentary: reports: Dryness, Flushing, Pallor, Other (left lower extremity cellulitis) Neuro: reports: Tremors Endocrine: reports: No Symptoms Reported Hematology: reports: No Symptoms Reported Psychiatric: reports: Mood/Affect Appropiate, Orientated x3, Anxious Other Systems: Reviewed and Negative Patient History - Patient Medical History Hx Anemia: No Hx Asthma: Yes (Albuterol) Hx Chronic Obstructive Pulmonary Disease (COPD): No Hx Cancer: No Hx Cardiac Disorders: No Hx Congestive Heart Failure: No Hx Hypertension: No Hx Hypercholesterolemia: No Hx Pacemaker: No HX Cerebrovascular Accident: No Hx Seizures: Yes (Keppra) Hx Dementia: No Hx Diabetes: No Hx Gastrointestinal Disorders: No Hx Liver Disease: No Hx Genitourinary Disorders: No Hx Sexually Transmitted Disorders: No Hx Renal Disease (ESRD): No Hx Thyroid Disease: No Hx Human Immunodeficiency Virus (HIV): No (Negative 2018) Hx Hepatitis C: Yes (Treated with Harvoni) Hx Depression: No Hx Suicide Attempt: No (Denies suicidal ideation at this time) Hx Bipolar Disorder: No Hx Schizophrenia: No - Patient Surgical History Past Surgical History: Yes Hx Neurologic Surgery: No Hx Cataract Extraction: No Hx Cardiac Surgery: No Hx Lung Surgery: No Hx Abdominal Surgery: No Hx Appendectomy: No Hx Cholecystectomy: No Hx Genitourinary Surgery: No Hx Orthopedic Surgery: No Other Surgical History: LEFT FOOT AT [facility] 2018 Anesthesia Reaction: No - PPD History Documented Results: Negative w/o proof Implanted On Prior [facility] Admission?: No PPD to be Administered?: Yes - Reproductive History Patient is a Female of Child Bearing Age (11 -55 yrs old): No (male) - Smoking Cessation Smoking history: Current every day smoker Have you smoked in the past 12 months: Yes Aproximately how many cigarettes per day: 20 Hx Chewing Tobacco Use: No Initiated information on smoking cessation: Yes 'Breaking Loose' booklet given: 03/14/19 - Substance & Tx. History Hx Alcohol Use: Yes Hx Substance Use: Yes Substance Use Type: Alcohol, Heroin, Opiates Hx Substance Use Treatment: Yes - Substances abused Cocaine Substance route: Inhalation Amount used: 60 dollars Age of first use: 18 Date of last use: 03/11/19 Alcohol Substance route: Injection Frequency: Daily Amount used: 2 of 6 packs Age of first use: 16 Date of last use: 03/11/19 Heroin Substance route: Injection Frequency: Daily Amount used: 6 bags Age of first use: 18 Date of last use: 03/12/19 Admission Physical Exam S - Vital Signs Vital Signs: Vital Signs - 24 hr 03/14/19 21:19 Temperature 98.4 F Pulse Rate 52 L Respiratory 16 Rate Blood Pressure 110/64 - Physical General Appearance: Yes: Moderate Distress, Anxious HEENTM: Yes: Within Normal Limits Respiratory: Yes: Lungs Clear, Normal Breath Sounds, No Respiratory Distress Neck: Yes: Within Normal Limits Breast: Yes: Breast Exam Deferred Cardiology: Yes: Regular Rhythm, Regular Rate Abdominal: Yes: Normal Bowel Sounds Genitourinary: Yes: Within Normal Limits Back: Yes: Normal Inspection Musculoskeletal: Yes: Back pain Extremities: Yes: Delayed Capillary Refill, Swelling (LLE) Neurological: Yes: Within Normal Limits, Alert, Normal Mood/Affect Integumentary: Yes: Other (LL CELLULITIS) Lymphatic: Yes: Within Normal Limits - Diagnostic (1) Cellulitis of left lower extremity Current Visit: Yes Status: Chronic (2) Asthma Current Visit: Yes Status: Chronic Qualifiers: Asthma severity: mild Asthma persistence: intermittent Asthma complication type: uncomplicated Qualified Code(s): J45.20 - Mild intermittent asthma, uncomplicated (3) Epilepsy Current Visit: Yes Status: Chronic Qualifiers: Epilepsy type: unspecified (4) Heroin dependence Current Visit: Yes Status: Chronic (5) Marijuana dependence Current Visit: Yes Status: Chronic Cleared for Admission [facility] - Detox or Rehab [facility] Level of Care: Medically Managed Detox Regimen/Protocol: Methadone/Librium Breathalyzer - Breathalyzer Breathalyzer: 0 Urine Drug Screen - Test Device Lot number: [id number] Expiration date: 05/25/20 - Control Is test valid?: Yes - Results Drug screen NEGATIVE: No Urine drug screen results: THC-Marijuana, MOP-Opiates, MTD-Methadone, BZO- Benzodiazepines Inpatient Rehab Admission - Rehab Decision to Admit Inpatient rehab admission?: No
[2019-03-14] MEDS ORDERED: cloNIDine HCL 0.1 MG TABLET PO PRN (22:20)
[2019-03-14] MEDS ORDERED: MENTHOL/PHENOL 1 EACH UD MM PRN (22:20)
[2019-03-14] MEDS ORDERED: MAGNESIUM CITRATE 300 ML BOTTLE PO PRN (22:20)
[2019-03-14] MEDS ORDERED: BISMUTH SUBSALICYLATE 524 MG/30 ML UD PO PRN (22:20)
[2019-03-14] MEDS ORDERED: chlordiazePOXIDE HCL 10 MG CAPSULE PO PRN (22:20)
[2019-03-14] MEDS ORDERED: NICOTINE POLACRILEX 2 MG GUM BUC PRN (22:20)
[2019-03-14] MEDS ORDERED: METHOCARBAMOL 500 MG TABLET PO PRN (22:20)
[2019-03-14] MEDS ORDERED: ACETAMINOPHEN 325 MG TABLET (FP) PO PRN ×2 (22:20)
[2019-03-14] MEDS ORDERED: MAG HYDROX/AL HYDROX/SIMETH 30 ML UNIT-DOSE CUP PO PRN (22:20)
[2019-03-14] MEDS ORDERED: IBUPROFEN 400 MG TABLET (FP) PO PRN (22:20)
[2019-03-14] MEDS ORDERED: MELATONIN 5 MG TABLETS PO PRN (22:20)
[2019-03-14] MEDS ORDERED: METHADONE HCL 10 MG TABLET (FOR DETOX USE ONLY) PO ONE (22:30)
[2019-03-14] MEDS ORDERED: ALBUTEROL SO4 HFA INHALER IH PRN (22:30)
[2019-03-14] MEDS ORDERED: COLLOIDAL OATMEAL 1 BAR EACH TP PRN (22:39)
[2019-03-14] MEDS: AMOX TR/POT CLAV 875MG/125MG TABLETS (FP) PO SCH (23:35)
[2019-03-15] MEDS: chlordiazePOXIDE HCL 25 MG CAPSULE PO SCH ×3 (05:50→22:06)
[2019-03-15] MEDS ORDERED: FOLIC ACID 1 MG TABLET (FP) PO SCH (10:00)
[2019-03-15] MEDS ORDERED: MULTIVITAMINS (DAILY MVI) TABLET (FP) PO SCH (10:00)
[2019-03-15] MEDS ORDERED: METHADONE HCL 5 MG TABLET (FOR DETOX USE ONLY) PO ONE (10:00)
[2019-03-15 10:50] LABS: HEMATOCRIT 38.2 % (35.4-49); HEMOGLOBIN 12.5 GM/dL (11.7-16.9); MCH 28.4 pg (25.7-33.7); MCHC 32.6 g/dl (32.0-35.9); MEAN PLT VOLUME 8.2 fl (7.5-11.1); PLATELET COUNT 173 K/MM3 (134-434); RBC 4.39 M/mm3 (4.00-5.60); RDW 14.1 % (11.9-15.9); WHITE BLOOD COUNT 3.3 K/mm3 (4.0-10.0)
[2019-03-15 10:51] LABS: ALBUMIN 2.5 g/dl (3.4-5.0); BILIRUBIN,TOTAL 0.2 mg/dL (0.2-1); BLOOD UREA NITROGEN 12.5 mg/dL (7-18); CALCIUM 8.4 mg/dL (8.5-10.1); CREATININE 0.7 mg/dL (0.55-1.3); POTASSIUM 4.3 mmol/L (3.5-5.1); TOT PROT 6.9 g/dl (6.4-8.2)
[2019-03-15] MEDS: PRENATAL VITAMINS W/ FOLIC ACID TABLET (FP) PO SCH (11:08)
[2019-03-15] MEDS: AMOX TR/POT CLAV 875MG/125MG TABLETS (FP) PO SCH ×2 (11:08→22:06)
[2019-03-15] MEDS: levETIRAcetam 500 MG TABLET (FP) PO SCH ×2 (11:08→22:06)
[2019-03-15] MEDS: THIAMINE HCL 100 MG TABLET (FP) PO SCH (11:09)
[2019-03-15] MEDS: SILVER SULFADIAZINE 1% TOP CREAM 50 GM JAR TP SCH ×2 (11:11→12:48)
[2019-03-15] MEDS: NICOTINE 14 MG/24 HOURS TOPICAL PATCH TD SCH (11:12)
[2019-03-15] MEDS: IBUPROFEN 400 MG TABLET (FP) PO PRN (12:46)
--- NOTE | 2019-03-15 13:23 | PN ---
[facility] CIWA - CIWA Score Nausea/Vomitin-No Nausea/No Vomiting Muscle Tremors: 2 Anxiety: 2 Agitation: 2 Paroxysmal Sweats: 2 Orientation: 0-Oriented Tacttile Disturbances: 0-None Auditory Disturbances: 0-None Visual Disturbances: 0-None Headache: 0-None Present CIWA-Ar Total Score: 8 BHS COWS - Scale Resting Pulse: 0= [place] 80 or Below Sweatin= Chills/Flushing Restless Observation: 1= Difficult to Sit Still Pupil Size: 0= Normal to Room Light Bone or Joint Aches: 2= Severe Diffuse Aches Runny Nose/ Eye Tearin= None GI Upset > 30mins: 0= None Tremor Observation of Outstretched Hands: 1= Tremor [place], Not Seen Yawning Observation: 1= 1-2x During Session Anxiety or Irritability: 1=Feels Anxious/Irritable Goose Flesh Skin: 0=Smooth Skin COWS Score: 7 S Progress Note (SOAP) Subjective: sweats irritable pain to large wound interrupted sleep Objective: 03/15/19 13:20 Vital Signs Temperature 97.2 F L 03/15/19 09:29 Pulse Rate 72 03/15/19 09:29 Respiratory Rate 18 03/15/19 09:29 Blood Pressure 119/64 03/15/19 09:29 O2 Sat by Pulse Oximetry (%) Laboratory Tests 03/15/19 03/15/19 03/15/19 07:20 07:20 07:20 WBC 3.3 L RBC 4.39 Hgb 12.5 Hct 38.2 MCV 87.0 MCH 28.4 MCHC 32.6 RDW 14.1 Plt Count 173 MPV 8.2 Sodium 142 Potassium 4.3 Chloride 110 H Carbon Dioxide 29 Anion Gap 3 L BUN 12.5 Creatinine 0.7 Est GFR (CKD-EPI)AfAm 124.87 Est GFR (CKD-EPI)NonAf 107.74 Random Glucose 80 Calcium 8.4 L Total Bilirubin 0.2 AST 22 ALT 22 Alkaline Phosphatase 104 Total Protein 6.9 Albumin 2.5 L RPR Titer Nonreactive HIV 1&2 Antibody Screen HIV P24 Antigen 03/15/19 07:20 WBC RBC Hgb Hct MCV MCH MCHC RDW Plt Count MPV Sodium Potassium Chloride Carbon Dioxide Anion Gap BUN Creatinine Est GFR (CKD-EPI)AfAm Est GFR (CKD-EPI)NonAf Random Glucose Calcium Total Bilirubin AST ALT Alkaline Phosphatase Total Protein Albumin RPR Titer HIV 1&2 Antibody Screen Negative HIV P24 Antigen Negative aaox3 ambulating no acute distress Assessment: 03/15/19 13:20 withdrawals large wound oozing serous sanguineous fluid to left lower leg/foot noted and a quarter size wound to same leg located upper chin area also noted. order to cleanse wound with N/S, apply silverden oint and cover with gauze and wrap with kerlex daily. Plan: continue wound care continue detox increase fluids
[2019-03-15] MEDS: MAGNESIUM HYDROX 2400MG/30ML ORAL SUSPENSION 30 ML CUP PO PRN (17:08)
[2019-03-15] MEDS ORDERED: THIAMINE HCL 100 MG TABLET (FP) PO SCH (22:00)
[2019-03-15] MEDS: MELATONIN 5 MG TABLETS PO PRN (22:08)
[2019-03-16] MEDS ORDERED: chlordiazePOXIDE HCL 10 MG CAPSULE PO PRN
[2019-03-16] MEDS: chlordiazePOXIDE 5 MG CAPSULE PO SCH ×3 (06:09→21:48)
[2019-03-16] MEDS: IBUPROFEN 400 MG TABLET (FP) PO PRN ×2 (06:10→19:57)
[2019-03-16] MEDS ORDERED: METHADONE HCL 10 MG TABLET (FOR DETOX USE ONLY) PO ONE (10:00)
--- NOTE | 2019-03-16 10:15 | PN ---
[facility] CIWA - CIWA Score Nausea/Vomitin-Mild Nausea/No Vomiting Muscle Tremors: None Anxiety: 2 Agitation: 0-Normal Activity Paroxysmal Sweats: 2 Orientation: 0-Oriented Tacttile Disturbances: 2-Mild Itch/Numbness/Burn Auditory Disturbances: 0-None Visual Disturbances: 0-None Headache: 1-Very Mild CIWA-Ar Total Score: 8 BHS COWS - Scale Resting Pulse: 0= [place] 80 or Below Sweatin= Chills/Flushing Restless Observation: 1= Difficult to Sit Still Pupil Size: 0= Normal to Room Light Bone or Joint Aches: 1= Mild Discomfort Runny Nose/ Eye Tearin= Nasal Congestion GI Upset > 30mins: 1= Stomach Cramp Tremor Observation of Outstretched Hands: 1= Tremor [place], Not Seen Yawning Observation: 1= 1-2x During Session Anxiety or Irritability: 1=Feels Anxious/Irritable Goose Flesh Skin: 0=Smooth Skin COWS Score: 8 S Progress Note (SOAP) Subjective: Patient is 54 yo male with hx of alcohol and opioid dependence with chronic LLE wound is here on librium and methadone detox protocol, patient c/o of body aches, interrupted sleep, chills Objective: 03/16/19 10:15 Vital Signs Temperature 97.9 F 03/16/19 07:05 Pulse Rate 64 03/16/19 09:44 Respiratory Rate 17 03/16/19 09:44 Blood Pressure 102/58 L 03/16/19 09:44 O2 Sat by Pulse Oximetry (%) Assessment: 03/16/19 12:36 Patient is AOx3 no acute distress EENT WNL, cheilitis + LLE wound 90% pint with macerated edges, + drainage Full ROM. ambulating in the unit withdrawal sx + wound Plan: increase fluids increase ensure to TID d/t wound and hypoalbumenia continue wound care QD with absorbent dressing and Agicell continue detox continue to monitor
[2019-03-16] MEDS: SILVER SULFADIAZINE 1% TOP CREAM 50 GM JAR TP SCH (10:38)
[2019-03-16] MEDS: AMOX TR/POT CLAV 875MG/125MG TABLETS (FP) PO SCH ×2 (10:38→21:48)
[2019-03-16] MEDS: NICOTINE 14 MG/24 HOURS TOPICAL PATCH TD SCH (10:38)
[2019-03-16] MEDS: levETIRAcetam 500 MG TABLET (FP) PO SCH ×2 (10:38→21:48)
[2019-03-16] MEDS: PRENATAL VITAMINS W/ FOLIC ACID TABLET (FP) PO SCH (10:38)
[2019-03-16] MEDS: THIAMINE HCL 100 MG TABLET (FP) PO SCH (10:47)
[2019-03-16] MEDS ORDERED: COLLOIDAL OATMEAL 1 BAR EACH TP PRN (11:19)
[2019-03-16] MEDS: MAGNESIUM HYDROX 2400MG/30ML ORAL SUSPENSION 30 ML CUP PO PRN (12:31)
[2019-03-16] MEDS: MELATONIN 5 MG TABLETS PO PRN (21:49)
[2019-03-17] MEDS: chlordiazePOXIDE HCL 10 MG CAPSULE PO SCH ×3 (05:22→21:20)
[2019-03-17] MEDS ORDERED: METHADONE HCL 5 MG TABLET (FOR DETOX USE ONLY) PO ONE (06:00)
--- NOTE | 2019-03-17 09:44 | PN ---
[facility] CIWA - CIWA Score Nausea/Vomitin-No Nausea/No Vomiting Muscle Tremors: None Anxiety: 1-Mildly Anxious Agitation: 1-Slight > Activity Paroxysmal Sweats: No Perspiration Orientation: 0-Oriented Tacttile Disturbances: 0-None Auditory Disturbances: 0-None Visual Disturbances: 0-None Headache: 0-None Present CIWA-Ar Total Score: 2 BHS COWS - Scale Resting Pulse: 0= [place] 80 or Below Sweatin= Chills/Flushing Restless Observation: 1= Difficult to Sit Still Pupil Size: 0= Normal to Room Light Bone or Joint Aches: 1= Mild Discomfort Runny Nose/ Eye Tearin= None GI Upset > 30mins: 0= None Tremor Observation of Outstretched Hands: 1= Tremor [place], Not Seen Yawning Observation: 0= None Anxiety or Irritability: 1=Feels Anxious/Irritable Goose Flesh Skin: 0=Smooth Skin COWS Score: 5 [facility] Progress Note (SOAP) Subjective: anxiety sweats restless Objective: 03/17/19 09:43 Vital Signs Temperature 99.7 F H 03/17/19 09:26 Pulse Rate 66 03/17/19 09:26 Respiratory Rate 16 03/17/19 09:26 Blood Pressure 106/56 L 03/17/19 09:26 O2 Sat by Pulse Oximetry (%) aaox3 ambulating no acute distress Assessment: 03/17/19 09:43 withdrawals Plan: continue detox increase fluids continue with wound care/dressing as ordered d/c in am
[2019-03-17] MEDS: NICOTINE 14 MG/24 HOURS TOPICAL PATCH TD SCH (10:37)
[2019-03-17] MEDS: THIAMINE HCL 100 MG TABLET (FP) PO SCH (10:38)
[2019-03-17] MEDS: AMOX TR/POT CLAV 875MG/125MG TABLETS (FP) PO SCH ×2 (10:38→21:20)
[2019-03-17] MEDS: levETIRAcetam 500 MG TABLET (FP) PO SCH ×2 (10:38→21:20)
[2019-03-17] MEDS: PRENATAL VITAMINS W/ FOLIC ACID TABLET (FP) PO SCH (10:38)
[2019-03-17] MEDS: IBUPROFEN 400 MG TABLET (FP) PO PRN (10:40)
[2019-03-17] MEDS: SILVER SULFADIAZINE 1% TOP CREAM 50 GM JAR TP SCH (12:05)
[2019-03-17 20:56] VITALS: TEMP 97.9
[2019-03-17] MEDS: MELATONIN 5 MG TABLETS PO PRN (21:21)
[2019-03-18] MEDS ORDERED: chlordiazePOXIDE HCL 10 MG CAPSULE PO ONE (05:00)
[2019-03-18] MEDS: IBUPROFEN 400 MG TABLET (FP) PO PRN (05:31)
--- NOTE | 2019-03-18 08:54 | DS ---
[facility] Detox Discharge Summary Admission Date: 03/14/19 Discharge Date: 03/18/19 - History Present History: Alcohol Dependence, Cannabis Dependence, Cocaine Dependence, Opioid Dependence - Physical Exam Results Vital Signs: Vital Signs Temperature 97.9 F 03/18/19 06:38 Pulse Rate 67 03/18/19 06:38 Respiratory Rate 18 03/18/19 06:38 Blood Pressure 103/68 03/18/19 06:38 O2 Sat by Pulse Oximetry (%) Pertinent Admission Physical Exam Findings: Vital Signs Temperature 97.9 F 03/18/19 06:38 Pulse Rate 67 03/18/19 06:38 Respiratory Rate 18 03/18/19 06:38 Blood Pressure 103/68 03/18/19 06:38 O2 Sat by Pulse Oximetry (%) Laboratory Tests 03/15/19 03/15/19 03/15/19 07:20 07:20 07:20 WBC 3.3 L RBC 4.39 Hgb 12.5 Hct 38.2 MCV 87.0 MCH 28.4 MCHC 32.6 RDW 14.1 Plt Count 173 MPV 8.2 Sodium 142 Potassium 4.3 Chloride 110 H Carbon Dioxide 29 Anion Gap 3 L BUN 12.5 Creatinine 0.7 Est GFR (CKD-EPI)AfAm 124.87 Est GFR (CKD-EPI)NonAf 107.74 Random Glucose 80 Calcium 8.4 L Total Bilirubin 0.2 AST 22 ALT 22 Alkaline Phosphatase 104 Total Protein 6.9 Albumin 2.5 L Levetiracetam 2.7 L RPR Titer HIV 1&2 Antibody Screen HIV P24 Antigen 03/15/19 03/15/19 07:20 07:20 WBC RBC Hgb Hct MCV MCH MCHC RDW Plt Count MPV Sodium Potassium Chloride Carbon Dioxide Anion Gap BUN Creatinine Est GFR (CKD-EPI)AfAm Est GFR (CKD-EPI)NonAf Random Glucose Calcium Total Bilirubin AST ALT Alkaline Phosphatase Total Protein Albumin Levetiracetam RPR Titer Nonreactive HIV 1&2 Antibody Screen Negative HIV P24 Antigen Negative aaox3 ambulating no acute distress - Treatment Hospital Course: Detox Protocol Followed, Detoxed Safely, Responded well, Discharged Condition Good, Rehab Referral Accepted Patient has Accepted a Rehab Referral to: pt declined rehab - Medication Discharge Medications: Ambulatory Orders Albuterol Sulfate 0.042% 1 inhaler PO Q4HWA PRN 03/12/19 Silver/Calcium Alginate [Algicell Ag 3/4"X12" Dressing] 1 patch DAILY 03/12/19 levETIRAcetam [Keppra -] 500 mg PO BID 03/12/19 Amoxicillin/Potassium Clav [Augmentin 875-125 Tablet] 1 each PO BID #14 tablet 03/14/19 Folic Acid - 1 mg PO DAILY tablet 03/14/19 Multivitamins [Multivit ([facility] Formulary)] 1 tab PO DAILY tab 03/14/19 Thiamine HCl [Vitamin B1 -] 100 mg PO DAILY tablet 03/14/19 - Diagnosis (1) Asthma Current Visit: Yes Status: Chronic Qualifiers: Asthma severity: mild Asthma persistence: intermittent Asthma complication type: uncomplicated Qualified Code(s): J45.20 - Mild intermittent asthma, uncomplicated (2) Cellulitis of left lower extremity Current Visit: Yes Status: Chronic (3) Epilepsy Current Visit: Yes Status: Chronic Qualifiers: Epilepsy type: unspecified (4) Heroin dependence Current Visit: Yes Status: Chronic (5) Marijuana dependence Current Visit: Yes Status: Chronic (6) Cellulitis Current Visit: Yes Status: Chronic Qualifiers: Site of cellulitis: extremity Site of cellulitis of extremity: lower extremity Laterality: left Qualified Code(s): L03.116 - Cellulitis of left lower limb (7) Cocaine abuse Current Visit: Yes Status: Acute (8) Polysubstance (excluding opioids) dependence Current Visit: No Status: Acute (9) Polysubstance abuse Current Visit: No Status: Acute (10) Ulcer Current Visit: No Status: Acute - AMA Did Patient Leave Against Medical Advice: No
[2019-03-18 09:19] VITALS: BP 108/57; PULSE 70
[2019-03-18] MEDS: levETIRAcetam 500 MG TABLET (FP) PO SCH (09:28)
[2019-03-18] MEDS: PRENATAL VITAMINS W/ FOLIC ACID TABLET (FP) PO SCH (09:28)
[2019-03-18] MEDS: AMOX TR/POT CLAV 875MG/125MG TABLETS (FP) PO SCH (09:28)
[2019-03-18] MEDS: THIAMINE HCL 100 MG TABLET (FP) PO SCH (09:28)
[2019-03-18] MEDS: NICOTINE 14 MG/24 HOURS TOPICAL PATCH TD SCH (11:43)
[2019-03-18] MEDS: SILVER SULFADIAZINE 1% TOP CREAM 50 GM JAR TP SCH (11:44)
== END 2019-03-18 10:00 | disposition home or self-care (01) | DRG 773 ==
LOC: YASAS 20:55 → Y6N 21:43
PROVIDERS: ADMIT Allergy & Immunology; ATTEND Allergy & Immunology
PROC: HZ2ZZZZ Detoxification Services for Substance Abuse Treatment (ICD-10-PCS; principal; 2019-03-14)
DX: F10.230 Alcohol dependence with withdrawal, uncomplicated (principal); F11.23 Opioid dependence with withdrawal; F14.20 Cocaine dependence, uncomplicated; F12.20 Cannabis dependence, uncomplicated; F17.210 Nicotine dependence, cigarettes, uncomplicated; L03.116 Cellulitis of left lower limb; I89.0 Lymphedema, not elsewhere classified; L97.821 Non-pressure chronic ulcer of other part of left lower leg limited to breakdown of skin; G40.909 Epilepsy, unspecified, not intractable, without status epilepticus; J45.20 Mild intermittent asthma, uncomplicated; Z86.19 Personal history of other infectious and parasitic diseases
CPT/HCPCS: 36415; 80053; 80177; 85027; 86593; 87389